=== PATIENT | female | born 1985 | race Caucasian/White ===

== ENCOUNTER 2020-09-27 16:36 | Outpatient (REF) | payer OTHER, SELFPAY | END 2020-09-27 16:37 | disposition home or self-care (01) | LOC: HO.LAB 16:36 | PROVIDERS: PCP Internal Medicine; Visit Provider Internal Medicine | DX: Z20.828 Contact with and (suspected) exposure to other viral communicable diseases (principal) | CPT/HCPCS: C9803; U0003 ==

== ENCOUNTER 2022-04-15 22:06 | Emergency (ER) | payer OTHER, SELFPAY ==
[2022-04-15 23:31] VITALS: BP 137/89; PULSE 73; RESP 16; TEMP 37.2; O2SAT 97; BMI 28.7
[2022-04-16 01:45] LABS: IDNOW Serial# 16C4AD1C
[2022-04-16 01:46] LABS: COVID-19 Test Negative (Negative); Influenza A Negative (Negative); Influenza B2 Negative (Negative)
[2022-04-16 02:00] VITALS: BP 112/63; PULSE 72; RESP 14; O2SAT 99
--- NOTE | 2022-04-16 02:51 | ED_ITS ---
HPI - Headache General Chief Complaint: Headache Stated Complaint: Head swollen, general fatigue Time Seen by Provider: 04/16/22 02:48 History of Present Illness HPI Narrative: Patient is a 36-year-old female presents today with having headaches. The headache is diffuse over the entire head. It is not associated with any focal weakness. Positive nausea. Positive generalized malaise positive earache patient from home. Positive congestion. Related Data Previous Rx's Medication Instructions Recorded ibuprofen 400 mg tablet 400 mg PO Q6H PRN #20 tab 04/16/22 Allergies Allergy/AdvReac Type Severity Reaction Status Date / Time No Known Allergies Allergy Verified 04/15/22 23:37 Review of Systems Review of Systems: Positive headache positive congestion Yes all other systems are reviewed and are negative FORMERLY [facility] Past Medical History Attestation statement: The following information was validated with the patient. Social History Social History Advance Directives: No Advance Directives Information Provided: No Physical Exam Vital Signs: Vital Signs: Last Vital Signs Temp 98.9 F 04/15/22 23:31 Pulse 73 04/15/22 23:31 Resp 16 04/15/22 23:31 BP 137/89 04/15/22 23:31 Pulse Ox 97 04/15/22 23:31 BMI result Body Mass Index 28.7 Appearance: Alert. Oriented X3. No acute distress. Eyes: Pupils equal, round and reactive to light. ENT: Pharynx normal. Neck: Normal inspection. Neck supple. No lymph nodes noted. No crepitus CVS: Normal heart rate and rhythm. Pulses normal. Normal S1 and S2 Respiratory: No respiratory distress. Breath sounds normal. No Wheezing. No rales Abdomen: Soft and nontender. No rigidity. No distention. good BS x4 Skin: Skin warm and dry. Normal skin color. Normal skin turgor. Extremities: No lower extremity edema. Neurovascular intact to all extremities. No Lacerations. No Rash Neuro: Oriented X 3. No motor deficit. No sensory deficit. Moving all extermities. No slurred speech MDM - Headache MDM Narrative Medical decision making narrative: Patient's COVID tests were negative. Given migraine treatment with good relief of symptoms. Per patient take Motrin for pain. In stable condition. Rapid strep was also negative. TMs were intact there is no erythema noted. No evidence for otitis. Patient is in stable condition.. No neck pain no fever not consistent with meningitis Medical Records Attestation: I reviewed the patient's medical records. Lab Data Attestation: I reviewed the patient's lab results. Result diagrams: 04/16/22 03:31 04/16/22 03:31 Labs: Lab Results 04/16/22 04/16/22 04/16/22 Range/Units 01:18 01:18 03:31 WBC 11.8 H (4.8-10.8) X10*3/uL RBC 3.69 L (4.20-5.50) X10*6/uL Hgb 11.5 L (12.0-16.0) g/dl Hct 34.4 L (37.0-47.0) % MCV 93.2 (80.0-98.0) fL MCH 31.2 (27.0-33.0) pg MCHC 33.4 (31.0-35.0) g/dl RDW 12.0 (11.0-16.0) % Plt Count 308 (160-400) X10*3/uL MPV 9.9 (9.4-12.3) fL Immature Gran % (Auto) 0.3 (0.0-0.4) % Neut % (Auto) 62.3 (45-73) % Lymph % (Auto) 25.9 (20-40) % [place] % (Auto) 7.2 (2-11) % Eos % (Auto) 4.0 (0-4) % Baso % (Auto) 0.3 (0-2) % Lymph # (Auto) 3.0 (1.2-4.9) X10*3/uL [place] # (Auto) 0.9 (0.1-1.2) X10*3/uL Eos # (Auto) 0.5 H (0.0-0.4) X10*3/uL Baso # (Auto) 0.0 (0.0-0.2) X10*3/uL Abs Immat Gran (auto) 0.03 (0.00-0.03) X10*3/uL Absolute Neuts (auto) 7.3 (2.0-8.3) x10*3/uL Absolute Nucleated RBC 0.000 (0.0-0.012) X10*3/uL Nucleated RBC % (auto) 0.0 (0.0-0.2) /100WBC Sodium (135-145) mmol/L Potassium (3.3-5.1) mmol/L Chloride (96-108) mmol/L Carbon Dioxide (22-29) mmol/L Anion Gap (12-20) BUN (9-16) mg/dL Creatinine (0.5-1.4) mg/dL Estim Creat Clear Calc Estimated GFR Random Glucose (60-115) mg/dL Calcium (8.4-10.2) mg/dL Beta HCG, Quant mIU/mL COVID-19 (ALYSSA) Negative (Negative) COVID-19 Clin Com See Note Influenza Type A (CINDY) Negative (Negative) Influenza Type B (CINDY) Negative (Negative) Influenza A & B Note See Note S. pyogenes GrpA CINDY (Negative) 04/16/22 04/16/22 04/16/22 Range/Units 03:31 03:31 03:31 WBC (4.8-10.8) X10*3/uL RBC (4.20-5.50) X10*6/uL Hgb (12.0-16.0) g/dl Hct (37.0-47.0) % MCV (80.0-98.0) fL MCH (27.0-33.0) pg MCHC (31.0-35.0) g/dl RDW (11.0-16.0) % Plt Count (160-400) X10*3/uL MPV (9.4-12.3) fL Immature Gran % (Auto) (0.0-0.4) % Neut % (Auto) (45-73) % Lymph % (Auto) (20-40) % [place] % (Auto) (2-11) % Eos % (Auto) (0-4) % Baso % (Auto) (0-2) % Lymph # (Auto) (1.2-4.9) X10*3/uL [place] # (Auto) (0.1-1.2) X10*3/uL Eos # (Auto) (0.0-0.4) X10*3/uL Baso # (Auto) (0.0-0.2) X10*3/uL Abs Immat Gran (auto) (0.00-0.03) X10*3/uL Absolute Neuts (auto) (2.0-8.3) x10*3/uL Absolute Nucleated RBC (0.0-0.012) X10*3/uL Nucleated RBC % (auto) (0.0-0.2) /100WBC Sodium 140 (135-145) mmol/L Potassium 3.5 (3.3-5.1) mmol/L Chloride 110 H (96-108) mmol/L Carbon Dioxide 23 (22-29) mmol/L Anion Gap 11 L (12-20) BUN 16 (9-16) mg/dL Creatinine 0.72 (0.5-1.4) mg/dL Estim Creat Clear Calc 69.9 Estimated GFR > 60 Random Glucose 78 (60-115) mg/dL Calcium 8.6 (8.4-10.2) mg/dL Beta HCG, Quant < 2 Cancelled mIU/mL COVID-19 (ALYSSA) (Negative) COVID-19 Clin Com Influenza Type A (CINDY) (Negative) Influenza Type B (CINDY) (Negative) Influenza A & B Note S. pyogenes GrpA CINDY Negative (Negative) Discharge Plan Discharge Clinical Impression: Headache Patient Disposition: Home, Self-Care Instructions: Acute Headache (DC) Prescriptions: New ibuprofen 400 mg tablet 400 mg PO Q6H PRN (Reason: pain) Qty: 20 0RF Referrals: Physician,Unknown J [Primary Care Provider] -
[2022-04-16] MEDS: Ketorolac Tromethamine 30 MG/ML VIAL IVPUSH (03:14)
[2022-04-16] MEDS: Metoclopramide HCl 10 MG/2 ML VIAL IVPUSH (03:14)
[2022-04-16] MEDS: diphenhydrAMINE HCL 50 MG/ML VIAL 25 MG IVPUSH (03:15)
[2022-04-16] MEDS: 0.9 % Sodium Chloride 500 ML 999 ML IV (03:16)
[2022-04-16 03:41] LABS: Basophils Percent Auto 0.3 % (0-2); Eosinophils Absolute Auto 0.5 X10*3/uL (0.0-0.4); Hematocrit 34.4 % (37.0-47.0); Hemoglobin 11.5 g/dl (12.0-16.0); Imm Gran Abs Auto 0.03 X10*3/uL (0.00-0.03); Imm Gran Pct Auto 0.3 % (0.0-0.4); Lymphocytes Percent Auto 25.9 % (20-40); MANUAL DIFF FLAG NO; Mean Corpuscular HGB Conc 33.4 g/dl (31.0-35.0); Mean Corpuscular Hemoglobin 31.2 pg (27.0-33.0); Mean Corpuscular Volume 93.2 fL (80.0-98.0); Mean Platelet Volume 9.9 fL (9.4-12.3); Monocytes Absolute Auto 0.9 X10*3/uL (0.1-1.2); Monocytes Percent Auto 7.2 % (2-11); Neutrophils Absolute Auto 7.3 x10*3/uL (2.0-8.3); Neutrophils Percent Auto 62.3 % (45-73); Platelet Count 308 X10*3/uL (160-400); Red Blood Count 3.69 X10*6/uL (4.20-5.50); White Blood Count 11.8 X10*3/uL (4.8-10.8)
[2022-04-16 03:49] LABS: Strep A Nucleic Acid Negative (Negative)
[2022-04-16 03:57] LABS: Anion Gap 11 (12-20); Blood Urea Nitrogen 16 mg/dL (9-16); Calcium 8.6 mg/dL (8.4-10.2); Carbon Dioxide 23 mmol/L (22-29); Chloride 110 mmol/L (96-108); Creatinine Clr Calc Pharmacy 69.9; Estimated Glomerular Filt Rate > 60; Glucose Random 78 mg/dL (60-115); Potassium 3.5 mmol/L (3.3-5.1); Sodium 140 mmol/L (135-145)
[2022-04-16 04:06] LABS: HCG Quantitative < 2 mIU/mL
[2022-04-16 05:36] VITALS: BP 122/67; PULSE 77; RESP 16; O2SAT 99
== END 2022-04-16 05:37 | disposition home or self-care (01) ==
PROVIDERS: Emergency Provider Emergency Medicine Emergency Medical Services
DX: R51.9 Headache, unspecified (principal); Z20.822 Contact with and (suspected) exposure to COVID-19; R11.0 Nausea; R53.81 Other malaise
CPT/HCPCS: 36415; 80048; 84702; 85025; 87502; 87635; 87651; 96361; 96374; 96375; 99283; 99284; J1200; J1885; J2765

== ENCOUNTER 2022-05-10 22:16 | Emergency (ER) | payer OTHER, SELFPAY ==
[2022-05-10 22:20] VITALS: BP 116/80; PULSE 88; RESP 20; TEMP 37.2; O2SAT 97; BMI 25.7
[2022-05-10 22:56] LABS: COVID-19 Test Negative (Negative); IDNOW Serial# 16C4AD1C; Influenza A Negative (Negative); Influenza B2 Negative (Negative)
--- NOTE | 2022-05-10 23:31 | ED_ITS ---
HPI - URI/Sore Throat General Chief Complaint: Upper Respiratory Symptoms Stated Complaint: headache ,sinus pressure Time Seen by Provider: 05/10/22 22:36 Source: patient and family Mode of arrival: ambulatory Limitations: language barrier (Danish-speaking) History of Present Illness HPI Narrative: 36-year-old female with a past medical history of migraine headaches and sinus infections presenting to the ED with complaints of chills, fatigue, malaise, migraine headaches with sinus pressure pain with associated nasal congestion/rhinorrhea since yesterday worse today. She also reports left ear pain with purulent drainage since yesterday after she placed the Q-tip into her ear due to she was already having pain. Denies recent travel or sick contacts. Denies any measured fevers, dizziness, neck pain/stiffness, trouble swallowing or breathing, sore throat, chest pain, shortness of breath, cough, dyspnea on exertion, orthopnea, palpitations, paresthesias, nausea/vomiting/diarrhea, constipation, abdominal pain, lower extremity edema or calf tenderness, recent travel or sick contacts, others with similar symptoms, recent CO2 exposure, recent tick bite, recent spinal procedure/epidural procedure, recent dental work, recent hospitalization or any other symptoms complaints or concerns at this time MD elicited complaint: rhinorrhea, nasal congestion and sinus pain Onset (ago): day(s) (2) Consistency: constant and progressively worsening Severity: moderate Description of mucous: clear, watery and yellow Able to tolerate fluids by mouth: Yes Exacerbating factors: changing head position and leaning forward Relieving factors: nothing Associated symptoms: chills, myalgias, headache, rhinorrhea, nasal congestion and ear pain (/drainage ) Treatments prior to arrival: none Related Data Previous Rx's Medication Instructions Recorded ibuprofen 400 mg tablet 400 mg PO Q6H PRN pain #20 tabs 04/16/22 amoxicillin 875 mg-potassium 1 tab PO BID 10 days #20 tabs 05/11/22 clavulanate 125 mg tablet diphenhydramine HCl 25 mg capsule 25 mg PO TID PRN sleep #14 caps 05/11/22 (Benadryl) ketorolac 10 mg tablet 10 mg PO Q8H PRN pain #10 tabs 05/11/22 Allergies Allergy/AdvReac Type Severity Reaction Status Date / Time No Known Allergies Allergy Verified 04/15/22 23:37 Review of Systems Review of Systems: Constitutional : + chills/fatigue/malaise, No Weight loss, No Fever, No Night Sweats ENT/Mouth : + left-sided ear pain with purulent drainage after placing a Q- tip/nasal congestion/rhinorrhea with sinus pressure pain, No Hearing loss, No Hoarseness, No sore throat, No Rhinorrhea, No Swallowing Difficulty Eyes: No Eye Pain, No Swelling, No Redness, No Foreign Body, No Discharge, No Vision Changes Cardiovascular : No Chest Pain, No SOB, No Dyspnea on Exertion, No Orthopnea, No Edema, No Palpitations Respiratory : No Cough, No Sputum, No Wheezing, No Smoke Exposure, No Dyspnea Gastrointestinal : No Nausea, No Vomiting, No Diarrhea, No Constipation, No abdominal Pain, No Hematochezia, No Melena Genitourinary : no irregular bleeding, No Dysuria, No Urinary Frequency, No Hematuria, No Urinary Incontinence, No Urgency, No Flank Pain, No Urinary Flow Changes, No Hesitancy Musculoskeletal : No joint pain, + Myalgias, No Joint Swelling Skin : No Skin Lesions, No rash Neuro : No Weakness, No Numbness, No Paresthesias, No Loss of Consciousness, No Dizziness, No Headache Psych : No Anxiety/Panic, No Depression, No SI/HI/AH/VH, No Social Issues, Heme/Lymph: No Bruising, No Bleeding,No Lymphadenopathy Endocrine : No Polyuria, No Polydipsia, No Temperature Intolerance Yes all other systems are reviewed and are negative [facility] Past Medical History Attestation statement: The following information was validated with the patient. Source: old records reviewed, obtained from family and nursing notes reviewed Social History Social History Advance Directives: No Advance Directives Information Provided: No Physical Exam Vital Signs: Vital Signs: Last Vital Signs Temp 99.0 F 05/10/22 22:20 Pulse 88 05/10/22 22:20 Resp 20 05/10/22 22:20 BP 116/80 05/10/22 22:20 Pulse Ox 97 05/10/22 22:20 O2 Del Method 05/10/22 22:20 BMI result Body Mass Index 25.7 vital signs have been reviewed as normal and appeared to be correct. Blood pressure normal. Heart rate normal. Respiration rate normal. Temperature normal. Oxygen saturation normal. Appearance: Alert. Oriented X3. No acute distress. Head: Normal external exam. Normocephalic. Atraumatic. Eyes: PERRLA. EOMI. Conjunctiva and sclera normal. Eyelids normal. ENT: Left tympanic membrane perforated with purulent yellow/green colored drainage. Right external ear canal within normal limits and right tympanic membrane within normal limits not perforated. TM's Normal. Patient with inflammation of the nares with nasal congestion noted and sinus pressure pain noted. Pharynx normal. Uvula midline. Moist mucous membranes. No lesions/ulcerations or masses noted on the tongue. Normal voice. No trismus noted. No drooling noted. No muffled voice noted. Neck: Normal inspection. Neck supple. FROM. No adenopathy. Thyroid Normal. No tracheal deviation noted. No crepitus is noted. No meningeal signs. No neck mass noted. No signs of trauma noted. CVS: Normal heart rate and rhythm. Heart sound normal. Pulses normal throughout. No murmurs/rales/gallops. Respiratory: No respiratory distress. Painless inspiration. Breath sounds normal. No wheezes/rales/rhonchi noted. No accessory muscle usage noted or decreased air movement noted. Back: Full range of motion noted. Nontender. Skin: Skin warm and dry. Normal skin color. Normal skin turgor. No rashes/lesions/lacerations noted. Extremities: No lower extremity edema. No calf tenderness is noted. Extremities exhibit normal range of motion and nontender. Neuro: Oriented X 3. No motor deficit. No sensory deficit. Reflexes normal. Normal steady gait. No focal neuro deficits noted. CN's II-XII intact bilate rally? Vascular: + radial pulses/+ 2 distal pedal pulses/+2 dorsalis pedis b/l. Normal cap refill. No cyanosis noted to upper extremity nails and lower extremity toes nails. Course Course Course Narrative: - Patient afebrile, resting comfortably in no distress. Non-toxic appearing. Patient denies any recent trauma/injury to head. Neurological exam shows no deficits. BP WNL. Denies any changes in vision. Patient ambulates without difficulty. Given the history, and physical - most likely diagnosis: Migraine PALOMO versus sinus pressure pain from a sinusitis. No imaging indicated. Will treat pain. Will d/c with migraine medicaiton and advised to follow - up with PCP. Patient demonstrated good understanding of signs and symptoms to return to ED for further testing should sx worsen. gradual onset PALOMO.. Pt states classic of previous migraine HAs. SAH: unlikely given gradual onset and similar to previous episodes Intracranial bleed: unlikely given neg trauma, neg anticoagulation Meningitis: unlikely given pt afebrile, neg stiff neck, no immune compromise. Exam without signs of meningismus Temporal arteritis: Unlikely given Neg jaw claudication, no temporal tenderness or nodularity on exam. Cerebral venous thrombosis: unlikely given no h/o hypercoaguable state, no chronic head/neck infection. MDM - URI/Sore Throat Medical Records Attestation: I reviewed the patient's medical records. Lab Data Attestation: I reviewed the patient's lab results. Labs: Lab Results 05/10/22 05/10/22 Range/Units 22:26 22:26 COVID-19 (ALYSSA) Negative (Negative) COVID-19 Clin Com See Note Influenza Type A (CINDY) Negative (Negative) Influenza Type B (CINDY) Negative (Negative) Influenza A & B Note See Note Discharge Plan Discharge Clinical Impression: Sinusitis, Sinus headache, Otitis externa, Central perforation of tympanic membrane, left ear Patient Disposition: Home, Self-Care Instructions: Sinusitis (ED), Otitis Externa (ED), Ruptured Eardrum (ED) Prescriptions: New amoxicillin-pot clavulanate 875-125 mg tablet 1 tab PO BID 10 Days Qty: 20 0RF ketorolac 10 mg tablet 10 mg PO Q8H PRN (Reason: pain) Qty: 10 0RF Rx Instructions: Given 1st dose in the ED diphenhydramine HCl [Benadryl] 25 mg capsule 25 mg PO TID PRN (Reason: sleep) Qty: 14 0RF No Action ibuprofen 400 mg tablet 400 mg PO Q6H PRN (Reason: pain) Qty: 20 0RF Referrals: Harjit Figueroa [Physician] - 1 week (Call to make a follow-up appointment within the next 1-2 weeks) Physician,Unknown J [Primary Care Provider] - 2 days (your pcp) Stand Alone Forms: Work/School Release Print Language: Danish
[2022-05-10] MEDS: 0.9 % Sodium Chloride 1,000 ML 999 ML IVCONT (23:50)
[2022-05-10] MEDS: Ketorolac Tromethamine 30 MG/ML VIAL IVPUSH (23:56)
[2022-05-10] MEDS: ondansetron HCL 4 MG/2 ML VIAL IVPUSH (23:56)
[2022-05-10] MEDS: diphenhydrAMINE HCL 50 MG/ML VIAL IVPUSH (23:57)
== END 2022-05-11 00:41 | disposition home or self-care (01) ==
PROVIDERS: Emergency Provider Internal Medicine
DX: J32.9 Chronic sinusitis, unspecified (principal); R51.9 Headache, unspecified; H60.92 Unspecified otitis externa, left ear; H72.02 Central perforation of tympanic membrane, left ear; Z20.822 Contact with and (suspected) exposure to COVID-19
CPT/HCPCS: 87502; 87635; 96361; 96374; 96375; 99283; 99284; J1200; J1885; J2405

== ENCOUNTER 2022-05-12 19:37 | Emergency (ER) | payer OTHER, SELFPAY ==
[2022-05-12 20:30] VITALS: BP 123/88; PULSE 90; RESP 20; TEMP 36.6; O2SAT 97; BMI 25.7
--- NOTE | 2022-05-12 21:54 | ED_ITS ---
HPI - Nausea/Vomiting/Diarrhea General Chief complaint: Headache Stated complaint: nauseous, vomiting Time Seen by Provider: 05/12/22 21:51 Source: patient and old records reviewed Mode of arrival: ambulatory Limitations: no limitations History of Present Illness HPI Narrative: 36 yo female seen here 05/10 for headaches negative serology for COVID/flu dx with migraine and L AOM with perforation after putting a Qtip into his ear. Put on Augmentin comes back today with c/o persistent L sided ear pain,sinus pressure, diarrhea from antibiotics MD elicited complaint: diarrhea and other (L ear pain, tension headache, sinus pressure) Pertinent past history: other (on augmentin) Onset (ago): day(s) (05/10) Description of diarrhea: watery Associated nausea: Yes Associated abdominal pain: No Severity: moderate Exacerbating factors: medication Relieving factors: none Context: recent antibiotic use Associated symptoms: other (ear pain, sinus pressure, headaches, diarrhea) Treatment prior to arrival: other (tried medications she was sent home with states they didn't help) Related Data Previous Rx's Medication Instructions Recorded ibuprofen 400 mg tablet 400 mg PO Q6H PRN pain #20 tabs 04/16/22 amoxicillin 875 mg-potassium 1 tab PO BID 10 days #20 tabs 05/11/22 clavulanate 125 mg tablet diphenhydramine HCl 25 mg capsule 25 mg PO TID PRN sleep #14 caps 05/11/22 (Benadryl) ketorolac 10 mg tablet 10 mg PO Q8H PRN pain #10 tabs 05/11/22 amoxicillin 500 mg capsule 500 mg PO BID 7 days #14 caps 05/12/22 [id number] 1 tab PO Q6H PRN pain #20 tabs 05/12/22 50 mg-325 mg-40 mg tablet cyclobenzaprine 10 mg tablet 10 mg PO TID PRN muscle spasm #14 05/12/22 tabs lactobacillus combination no.4 3 3,000 mmu cells PO DAILY #14 caps 05/12/22 billion cell capsule (Probiotic) ofloxacin 0.3 % ear drops 10 drp otic (ears) DAILY 7 days #5 05/12/22 mL ondansetron 4 mg disintegrating 4 mg PO Q8H PRN nausea and 05/12/22 tablet vomiting #20 tabs Allergies Allergy/AdvReac Type Severity Reaction Status Date / Time No Known Allergies Allergy Verified 05/12/22 20:36 Review of Systems Review of Systems: Constitutional : No Fever, No Chills, No Fatigue ENT/Mouth : No sore throat, No Rhinorrhea, pos ear pain, pos sinus pressure, pos nasal congestion Eyes: No Eye Pain, No Swelling, No Redness Cardiovascular : No Chest Pain, No SOB, No Dyspnea on Exertion Respiratory : No Cough, No Sputum Gastrointestinal : pos Nausea, No Vomiting, pos Diarrhea, No abdominal Pain Genitourinary : No Dysuria, No Urinary Frequency, No Hematuria, Musculoskeletal : No joint pain, No Myalgias, No Joint Swelling Skin : No Skin Lesions, No rash Neuro : No Weakness, No Numbness, No Dizziness, positive Headache Psych : No Anxiety/Panic, No Depression Heme/Lymph: No Bruising, No Bleeding,No Lymphadenopathy Endocrine : No Polyuria, No Polydipsia All other systems reviewed and are negative Gastrointestinal: Gastrointestinal: Reports nausea PMFSH Past Medical History Attestation statement: The following information was validated with the patient. Medical History Migraine Otitis media Sinusitis Social History Social History (Updated 05/12/22 @ 22:18 by Wanda Treviño DO) Patient Tobacco Use Status: Current someday Tobacco user Physical Exam Vital Signs: Vital Signs: Last Vital Signs Temp 98 F 05/12/22 20:30 Pulse 90 05/12/22 20:30 Resp 20 05/12/22 20:30 BP 123/88 05/12/22 20:30 Pulse Ox 97 05/12/22 20:30 O2 Del Method 05/12/22 20:30 BMI result Body Mass Index 25.7 Appearance: Alert. Oriented X3. No acute distress. Not toxic appearing Eyes: Pupils equal, round and reactive to light. ENT: Pharynx normal. L TM small perforation noted, swollen mild canal yellow material in canal along with dull membrane and fluid behind drum Neck: Normal inspection. Neck supple. full ROM no meningeal signs CVS: Normal heart rate and rhythm. Pulses normal. Respiratory: No respiratory distress. Breath sounds normal. Abdomen: Soft and nontender. Skin: Skin warm and dry. Normal skin color. Normal skin turgor. Extremities: No lower extremity edema. No calf ttp Neuro: Oriented X 3. No motor deficit. No sensory deficit. MDM - Nausea/Vomiting/Diarrhea MDM Narrative Medical decision making narrative: 36 yo female with hx of migraines has not seen Neurologist yet just treated for sinusitis and L AOM reports diarrhea, persistent headache - not on probitiocs, not on ear drops. At this time will start on amoxicillin (switch from augmentin) add ear drops, more supportive medications. Discussed probiotics and yogurt, patient is not toxic and appears well. VS stable. Discussed PCP follow up and no water in the ear. I do not suspect SAH hemorrhage or [employer] infection. Discharge Plan Discharge Clinical Impression: Sinusitis, Tension headache, Otitis media Patient Disposition: Home, Self-Care Instructions: Sinusitis (ED), Ruptured Eardrum (ED), Tension Headache (ED), Ear Infection (ED) Additional Instructions: sin agua en el oido seth 5 weinstein lita un seguimiento con olivera m?dico y vuelva a revisar olivera t?mpano en los pr?ximos 5 d?as Deje de mickie Augmentin (amoxicilina/?cido clavul?tiffany) en janie momento come yogur mientras aaron antibi?ticos Prescriptions: New cyclobenzaprine 10 mg tablet 10 mg PO TID PRN (Reason: muscle spasm) Qty: 14 0RF amoxicillin 500 mg capsule 500 mg PO BID 7 Days Qty: 14 0RF [id number]-kryipyhowlfyi-[id number] 50-325-40 mg tablet 1 tab PO Q6H PRN (Reason: pain) Qty: 20 0RF ofloxacin 0.3 % drops 10 drp otic (ears) DAILY 7 Days Qty: 5 0RF ondansetron 4 mg tablet,disintegrating 4 mg PO Q8H PRN (Reason: nausea and vomiting) Qty: 20 0RF Probiotic 3 billion cell capsule 3,000 mmu cells PO DAILY Qty: 14 0RF Rx Instructions: administer with a meal No Action ibuprofen 400 mg tablet 400 mg PO Q6H PRN (Reason: pain) Qty: 20 0RF amoxicillin-pot clavulanate 875-125 mg tablet 1 tab PO BID 10 Days Qty: 20 0RF ketorolac 10 mg tablet 10 mg PO Q8H PRN (Reason: pain) Qty: 10 0RF Rx Instructions: Given 1st dose in the ED diphenhydramine HCl [Benadryl] 25 mg capsule 25 mg PO TID PRN (Reason: sleep) Qty: 14 0RF Print Language: Romansh
[2022-05-12] MEDS: Butalb/Acetamin/Caff 50/325/40 TABLET 1 TAB PO (22:54)
[2022-05-12] MEDS: Ondansetron ODT 4 MG TAB.RAPDIS TRANSLINGU (22:54)
[2022-05-12] MEDS: Cyclobenzaprine HCl 10 MG TABLET PO (22:54)
== END 2022-05-12 23:08 | disposition home or self-care (01) ==
PROVIDERS: Emergency Provider Emergency Medicine
DX: G44.209 Tension-type headache, unspecified, not intractable (principal); H66.93 Otitis media, unspecified, bilateral; R11.2 Nausea with vomiting, unspecified; J32.9 Chronic sinusitis, unspecified; Z79.899 Other long term (current) drug therapy
CPT/HCPCS: 99283

== ENCOUNTER 2023-04-05 20:35 | Emergency (ER) | payer OTHER, SELFPAY ==
--- NOTE | 2023-04-05 20:42 | ED.GENADULT ---
HPI - General Adult General Chief complaint: Weakness Stated complaint: weakness,loss of appetite Time Seen by Provider: 04/05/23 23:29 Related Data Previous Rx's Medication Instructions Recorded ibuprofen 400 mg tablet 400 mg PO Q6H PRN pain #20 tabs 04/16/22 amoxicillin 875 mg-potassium 1 tab PO BID 10 days #20 tabs 05/11/22 clavulanate 125 mg tablet diphenhydramine HCl 25 mg capsule 25 mg PO TID PRN sleep #14 caps 05/11/22 (Benadryl) ketorolac 10 mg tablet 10 mg PO Q8H PRN pain #10 tabs 05/11/22 amoxicillin 500 mg capsule 500 mg PO BID 7 days #14 caps 05/12/22 ysscrcvjuf-yrzjauehocotx-cfwkmmpq 1 tab PO Q6H PRN pain #20 tabs 05/12/22 50 mg-325 mg-40 mg tablet cyclobenzaprine 10 mg tablet 10 mg PO TID PRN muscle spasm #14 05/12/22 tabs lactobacillus combination no.4 3 3,000 mmu cells PO DAILY #14 caps 05/12/22 billion cell capsule (Probiotic) ofloxacin 0.3 % ear drops 10 drp otic (ears) DAILY 7 days #5 05/12/22 mL ondansetron 4 mg disintegrating 4 mg PO Q8H PRN nausea and 05/12/22 tablet vomiting #20 tabs ondansetron 4 mg disintegrating 4 mg PO Q6H PRN nausea and 04/06/23 tablet vomiting #10 tabs Allergies Allergy/AdvReac Type Severity Reaction Status Date / Time No Known Allergies Allergy Verified 05/12/22 20:36 [facility] Past Medical History Medical History Migraine Otitis media Sinusitis Social History Social History (Updated 05/12/22 @ 22:18 by Terrie Treviño DO) Patient Tobacco Use Status: Current someday Tobacco user Advance Directives: No Advance Directives Information Provided: Yes Physical Exam ED Vital Signs: Vital Signs - 24 hr 04/05/23 20:43 Temperature 98.9 F Pulse Rate 77 Respiratory Rate 18 Blood Pressure 99/61 Pulse Oximetry 99 Oxygen Delivery Method Room Air BMI result Body Mass Index 28.2 Course Course Course Narrative: This is a rapid medical exam. Deferred additional HPI, ROS, PE to primary provider. 37 yo female with history of anxiety, depression, here with weakness, nausea, headache x 1 week. Also menses is one week late-tells me she cannot have children ?tubal There was a gas leak at her apartment that she found out today. Will check labs, UA, ur preg, viral testing. VSS Medications Administered Discontinued Medications Generic Name Dose Route Start Last Admin Trade Name Freq PRN Reason Stop Dose Admin Ondansetron HCl 4 mg 04/05/23 23:48 04/06/23 00:06 Ondansetron Odt 4 Mg Tab.Rapdis TRANSLINGU 04/05/23 23:49 4 mg ONCE ONE Administration Medical Decision Making Lab Data 04/05/23 21:35 04/05/23 21:35 Labs: Lab Results 04/05/23 04/05/23 04/05/23 Range/Units 21:34 21:35 21:35 WBC 12.4 H (4.8-10.8) X10*3/uL RBC 4.10 L (4.20-5.50) X10*6/uL Hgb 12.8 (12.0-16.0) g/dl Hct 38.1 (37.0-47.0) % MCV 92.9 (80.0-98.0) fL MCH 31.2 (27.0-33.0) pg MCHC 33.6 (31.0-35.0) g/dl RDW 12.5 (11.0-16.0) % Plt Count 297 (160-400) X10*3/uL MPV 10.2 (9.4-12.3) fL Immature Gran % (Auto) 0.2 (0.0-0.4) % Neut % (Auto) 71.9 (45-73) % Lymph % (Auto) 18.0 L (20-40) % [place] % (Auto) 9.3 (2-11) % Eos % (Auto) 0.3 (0-4) % Baso % (Auto) 0.3 (0-2) % Lymph # (Auto) 2.2 (1.2-4.9) X10*3/uL [place] # (Auto) 1.2 (0.1-1.2) X10*3/uL Eos # (Auto) 0.0 (0.0-0.4) X10*3/uL Baso # (Auto) 0.0 (0.0-0.2) X10*3/uL Abs Immat Gran (auto) 0.03 (0.00-0.03) X10*3/uL Absolute Neuts (auto) 8.9 H (2.0-8.3) x10*3/uL Absolute Nucleated RBC 0.000 (0.0-0.012) X10*3/uL Nucleated RBC % (auto) 0.0 (0.0-0.2) /100WBC Carboxyhemoglobin % % Sodium 141 (135-145) mmol/L Potassium 3.7 (3.3-5.1) mmol/L Chloride 105 (96-108) mmol/L Carbon Dioxide 28 (22-29) mmol/L Anion Gap 12 (12-20) BUN 9 (9-16) mg/dL Creatinine 0.72 (0.5-1.4) mg/dL Estim Creat Clear Calc 68.6 Estimated GFR > 60 Random Glucose 86 (60-115) mg/dL Calcium 10.0 D (8.4-10.2) mg/dL Urine Color Urine Appearance Urine pH (5.0-9.0) Ur Specific [place] (1.005-1.025) Urine Protein (Neg-Trace) mg/dL Urine Glucose (UA) (Negative) mg/dL Urine Ketones (Negative) mg/dL Urine Blood (Negative) Urine Nitrite (Negative) Ur Leukocyte Esterase (Negative) Urine RBC (0-2) /HPF Urine WBC (0-5) /HPF Ur Squamous Epith Cells (0-2) /HPF Urine Bacteria (None Seen) Hyaline Casts (0-2) /LPF Urine Test NEGATIVE (NEGATIVE) Influenza Type A (PCR) (Negative) Influenza Type B (PCR) (Negative) RSV RNA Qual (PCR) (Negative) SARS-CoV-2 RNA (RT-PCR) (Negative) 04/05/23 04/05/23 04/05/23 Range/Units 21:35 21:35 21:38 WBC (4.8-10.8) X10*3/uL RBC (4.20-5.50) X10*6/uL Hgb (12.0-16.0) g/dl Hct (37.0-47.0) % MCV (80.0-98.0) fL MCH (27.0-33.0) pg MCHC (31.0-35.0) g/dl RDW (11.0-16.0) % Plt Count (160-400) X10*3/uL MPV (9.4-12.3) fL Immature Gran % (Auto) (0.0-0.4) % Neut % (Auto) (45-73) % Lymph % (Auto) (20-40) % [place] % (Auto) (2-11) % Eos % (Auto) (0-4) % Baso % (Auto) (0-2) % Lymph # (Auto) (1.2-4.9) X10*3/uL [place] # (Auto) (0.1-1.2) X10*3/uL Eos # (Auto) (0.0-0.4) X10*3/uL Baso # (Auto) (0.0-0.2) X10*3/uL Abs Immat Gran (auto) (0.00-0.03) X10*3/uL Absolute Neuts (auto) (2.0-8.3) x10*3/uL Absolute Nucleated RBC (0.0-0.012) X10*3/uL Nucleated RBC % (auto) (0.0-0.2) /100WBC Carboxyhemoglobin % 3.9 % Sodium (135-145) mmol/L Potassium (3.3-5.1) mmol/L Chloride (96-108) mmol/L Carbon Dioxide (22-29) mmol/L Anion Gap (12-20) BUN (9-16) mg/dL Creatinine (0.5-1.4) mg/dL Estim Creat Clear Calc Estimated GFR Random Glucose (60-115) mg/dL Calcium (8.4-10.2) mg/dL Urine Color Yellow Urine Appearance Cloudy Urine pH 6.0 (5.0-9.0) Ur Specific [place] 1.020 (1.005-1.025) Urine Protein Negative (Neg-Trace) mg/dL Urine Glucose (UA) Negative (Negative) mg/dL Urine Ketones Negative (Negative) mg/dL Urine Blood Small (1+) H (Negative) Urine Nitrite Negative (Negative) Ur Leukocyte Esterase Negative (Negative) Urine RBC 3-5 H (0-2) /HPF Urine WBC 0-5 (0-5) /HPF Ur Squamous Epith Cells 11-20 (0-2) /HPF Urine Bacteria 4+ (None Seen) Hyaline Casts 0-2 (0-2) /LPF Urine Test (NEGATIVE) Influenza Type A (PCR) NEGATIVE (Negative) Influenza Type B (PCR) NEGATIVE (Negative) RSV RNA Qual (PCR) NEGATIVE (Negative) SARS-CoV-2 RNA (RT-PCR) NEGATIVE (Negative) Discharge Plan Discharge Clinical Impression: Generalized weakness, Nausea vomiting and diarrhea Patient Disposition: Home, Self-Care Instructions: Acute Nausea and Vomiting (ED), Weakness (ED) Additional Instructions: Please follow-up with your primary care physician tomorrow. If you have any worsening or new symptoms, please return to the emergency room or call 911 Prescriptions: New ondansetron 4 mg tablet,disintegrating 4 mg PO Q6H PRN (Reason: nausea and vomiting) Qty: 10 0RF No Action ibuprofen 400 mg tablet 400 mg PO Q6H PRN (Reason: pain) Qty: 20 0RF amoxicillin-pot clavulanate 875-125 mg tablet 1 tab PO BID 10 Days Qty: 20 0RF ketorolac 10 mg tablet 10 mg PO Q8H PRN (Reason: pain) Qty: 10 0RF Rx Instructions: Given 1st dose in the ED diphenhydramine HCl [Benadryl] 25 mg capsule 25 mg PO TID PRN (Reason: sleep) Qty: 14 0RF cyclobenzaprine 10 mg tablet 10 mg PO TID PRN (Reason: muscle spasm) Qty: 14 0RF amoxicillin 500 mg capsule 500 mg PO BID 7 Days Qty: 14 0RF zskkcfjhmc-paakzvubxiock-mfyc 50-325-40 mg tablet 1 tab PO Q6H PRN (Reason: pain) Qty: 20 0RF ofloxacin 0.3 % drops 10 drp otic (ears) DAILY 7 Days Qty: 5 0RF ondansetron 4 mg tablet,disintegrating 4 mg PO Q8H PRN (Reason: nausea and vomiting) Qty: 20 0RF Probiotic 3 billion cell capsule 3,000 mmu cells PO DAILY Qty: 14 0RF Rx Instructions: administer with a meal
[2023-04-05 20:43] VITALS: BP 99/61; PULSE 77; RESP 18; TEMP 37.2; O2SAT 99; BMI 28.2
[2023-04-05 21:41] LABS: MANUAL DIFF FLAG NO
[2023-04-05 21:43] LABS: Basophils Percent Auto 0.3 % (0-2); Eosinophils Percent Auto 0.3 % (0-4); Hematocrit 38.1 % (37.0-47.0); Hemoglobin 12.8 g/dl (12.0-16.0); Imm Gran Abs Auto 0.03 X10*3/uL (0.00-0.03); Imm Gran Pct Auto 0.2 % (0.0-0.4); Lymphocytes Absolute Auto 2.2 X10*3/uL (1.2-4.9); Mean Corpuscular HGB Conc 33.6 g/dl (31.0-35.0); Mean Corpuscular Hemoglobin 31.2 pg (27.0-33.0); Mean Corpuscular Volume 92.9 fL (80.0-98.0); Mean Platelet Volume 10.2 fL (9.4-12.3); Monocytes Absolute Auto 1.2 X10*3/uL (0.1-1.2); Monocytes Percent Auto 9.3 % (2-11); Neutrophils Absolute Auto 8.9 x10*3/uL (2.0-8.3); Neutrophils Percent Auto 71.9 % (45-73); Platelet Count 297 X10*3/uL (160-400); Red Cell Distribution Width 12.5 % (11.0-16.0); White Blood Count 12.4 X10*3/uL (4.8-10.8)
[2023-04-05 21:44] LABS: Appearance Urine Cloudy; Color Urine Yellow; Glucose Urine UA Negative (Negative); Leukocyte Esterase Urine Negative (Negative); Nitrite Urine Negative (Negative); UMIC TRIGGER UACC YES; Urine Blood Small (1+) (Negative); Urine Ketones Negative (Negative); Urine Protein Negative (Neg-Trace)
[2023-04-05 21:44] LABS: Carbon Monoxide Refer to POC result
[2023-04-05 21:45] LABS: UPreg QC Valid YES; Urine Pregnancy NEGATIVE (NEGATIVE)
[2023-04-05 21:45] LABS: Carbon Monoxide POC 3.9 %
[2023-04-05 21:54] LABS: Anion Gap 12 (12-20); Blood Urea Nitrogen 9 mg/dL (9-16); Carbon Dioxide 28 mmol/L (22-29); Chloride 105 mmol/L (96-108); Creatinine Clr Calc Pharmacy 68.6; Estimated Glomerular Filt Rate > 60; Glucose Random 86 mg/dL (60-115); Potassium 3.7 mmol/L (3.3-5.1); Sodium 141 mmol/L (135-145)
[2023-04-05 22:08] LABS: Bacteria Urine 4+ (None Seen); Hyaline Casts Urine 0-2 /LPF (0-2); WBC Urine 0-5 /HPF (0-5)
[2023-04-05 22:20] LABS: Influenza A PCR NEGATIVE (Negative); Influenza B PCR NEGATIVE (Negative); Resp Syncy Virus RNA Qual PCR NEGATIVE (Negative); SARS COV2 PCR INHOUSE NEGATIVE (Negative)
--- NOTE | 2023-04-05 23:12 | ECG_ITS ---
Test Reason : WEACKNESS Blood Pressure : / mmHG Vent. Rate : 067 BPM Atrial Rate : 067 BPM P-R Int : 158 ms QRS Dur : 086 ms QT Int : 364 ms P-R-T Axes : 059 065 025 degrees QTc Int : 384 ms Normal sinus rhythm with sinus arrhythmia Nonspecific T wave abnormality Abnormal ECG No previous ECGs available Referred By: Generic ED Physician Electronically Signed By:SOHAN DAILY
--- NOTE | 2023-04-05 23:47 | ED.GENADULT ---
HPI - General Adult General Chief complaint: Weakness Stated complaint: weakness,loss of appetite Time Seen by Provider: 04/05/23 23:29 Source: patient Mode of arrival: ambulatory Limitations: no limitations History of Present Illness HPI narrative: Patient comes to the emergency room complaining of weakness, nausea, headache, diarrhea for about a week. Patient states that for several weeks now, she has noticed that her apartment smells like gas. Patient informed the landlord, they sent a network internship to check, and it was confirmed that there is a gas leak. The gas was shut off at the patient's residence. Related Data Previous Rx's Medication Instructions Recorded ibuprofen 400 mg tablet 400 mg PO Q6H PRN pain #20 tabs 04/16/22 amoxicillin 875 mg-potassium 1 tab PO BID 10 days #20 tabs 05/11/22 clavulanate 125 mg tablet diphenhydramine HCl 25 mg capsule 25 mg PO TID PRN sleep #14 caps 05/11/22 (Benadryl) ketorolac 10 mg tablet 10 mg PO Q8H PRN pain #10 tabs 05/11/22 amoxicillin 500 mg capsule 500 mg PO BID 7 days #14 caps 05/12/22 dlqorbsmzb-emzvtofccbruf-kijlwjvv 1 tab PO Q6H PRN pain #20 tabs 05/12/22 50 mg-325 mg-40 mg tablet cyclobenzaprine 10 mg tablet 10 mg PO TID PRN muscle spasm #14 05/12/22 tabs lactobacillus combination no.4 3 3,000 mmu cells PO DAILY #14 caps 05/12/22 billion cell capsule (Probiotic) ofloxacin 0.3 % ear drops 10 drp otic (ears) DAILY 7 days #5 05/12/22 mL ondansetron 4 mg disintegrating 4 mg PO Q8H PRN nausea and 05/12/22 tablet vomiting #20 tabs Allergies Allergy/AdvReac Type Severity Reaction Status Date / Time No Known Allergies Allergy Verified 05/12/22 20:36 Review of Systems Review of Systems: Constitutional : No Weight loss, No Fever, No Chills, No Night Sweats, fatigue and generalized malaise ENT/Mouth : No Hearing loss, No Ear Pain, No Nasal Congestion, No Sinus Pain, No Hoarseness, No sore throat, No Rhinorrhea, No Swallowing Difficulty Eyes: No Eye Pain, No Swelling, No Redness, No Foreign Body, No Discharge, No Vision Changes Cardiovascular : No Chest Pain, No SOB, No Dyspnea on Exertion, No Orthopnea, No Edema, No Palpitations Respiratory : No Cough, No Sputum, No Wheezing, No Smoke Exposure, No Dyspnea Gastrointestinal : No Nausea, complaining of nausea and vomiting Vomiting, No Diarrhea, No Constipation, No abdominal Pain, No Hematochezia, No Melena Genitourinary : no irregular bleeding, No Dysuria, No Urinary Frequency, No Hematuria, No Urinary Incontinence, No Urgency, No Flank Pain, No Urinary Flow Changes, No Hesitancy Musculoskeletal : No joint pain, No Myalgias, No Joint Swelling Skin : No Skin Lesions, No rash Neuro : No Weakness, No Numbness, No Paresthesias, No Loss of Consciousness, No Dizziness, No Headache Psych : No Anxiety/Panic, No Depression, No SI/HI/AH/VH, No Social Issues, Heme/Lymph: No Bruising, No Bleeding,No Lymphadenopathy Endocrine : No Polyuria, No Polydipsia, No Temperature Intolerance [facility] Past Medical History Medical History Migraine Otitis media Sinusitis Social History Social History (Updated 05/12/22 @ 22:18 by Terrie Treviño DO) Patient Tobacco Use Status: Current someday Tobacco user Physical Exam ED Vital Signs: Vital Signs - 24 hr 04/05/23 20:43 Temperature 98.9 F Pulse Rate 77 Respiratory Rate 18 Blood Pressure 99/61 Pulse Oximetry 99 Oxygen Delivery Method Room Air BMI result Body Mass Index 28.2 Const Other: Appearance: Alert. Oriented X3. No acute distress. Eyes: Pupils equal, round and reactive to light. ENT: Pharynx normal. Neck: Normal inspection. Neck supple. No lymph nodes noted. No crepitus CVS: Normal heart rate and rhythm. Pulses normal. Normal S1 and S2 Respiratory: No respiratory distress. Breath sounds normal. No Wheezing. No rales Abdomen: Soft and nontender. No rigidity. No distention. Skin: Skin warm and dry. Normal skin color. Normal skin turgor. Extremities: No lower extremity edema. No Lacerations. No Rash Neuro: Oriented X 3. No motor deficit. No sensory deficit. Moving all extremities. No slurred speech. CN 2 through 12 grossly intact Psych: calm, cooperative, normal affect Medical Decision Making Medical Decision Making MDM Narrative: Patient's white blood cell count 12.4, likely reactive leukocytosis, chemistry unremarkable, carboxyhemoglobin level 3.9, patient is a smoker, (normal levels for smoker). -patient was given Zofran in the emergency room and a prescription. -discussed with the patient that she needs to have good follow-up with her [employer] to ensure there was no further leaks Differential diagnosis, viral syndrome Lab Data 04/05/23 21:35 04/05/23 21:35 Labs: Lab Results 04/05/23 04/05/23 04/05/23 Range/Units 21:34 21:35 21:35 WBC 12.4 H (4.8-10.8) X10*3/uL RBC 4.10 L (4.20-5.50) X10*6/uL Hgb 12.8 (12.0-16.0) g/dl Hct 38.1 (37.0-47.0) % MCV 92.9 (80.0-98.0) fL MCH 31.2 (27.0-33.0) pg MCHC 33.6 (31.0-35.0) g/dl RDW 12.5 (11.0-16.0) % Plt Count 297 (160-400) X10*3/uL MPV 10.2 (9.4-12.3) fL Immature Gran % (Auto) 0.2 (0.0-0.4) % Neut % (Auto) 71.9 (45-73) % Lymph % (Auto) 18.0 L (20-40) % [place] % (Auto) 9.3 (2-11) % Eos % (Auto) 0.3 (0-4) % Baso % (Auto) 0.3 (0-2) % Lymph # (Auto) 2.2 (1.2-4.9) X10*3/uL [place] # (Auto) 1.2 (0.1-1.2) X10*3/uL Eos # (Auto) 0.0 (0.0-0.4) X10*3/uL Baso # (Auto) 0.0 (0.0-0.2) X10*3/uL Abs Immat Gran (auto) 0.03 (0.00-0.03) X10*3/uL Absolute Neuts (auto) 8.9 H (2.0-8.3) x10*3/uL Absolute Nucleated RBC 0.000 (0.0-0.012) X10*3/uL Nucleated RBC % (auto) 0.0 (0.0-0.2) /100WBC Carboxyhemoglobin % % Sodium 141 (135-145) mmol/L Potassium 3.7 (3.3-5.1) mmol/L Chloride 105 (96-108) mmol/L Carbon Dioxide 28 (22-29) mmol/L Anion Gap 12 (12-20) BUN 9 (9-16) mg/dL Creatinine 0.72 (0.5-1.4) mg/dL Estim Creat Clear Calc 68.6 Estimated GFR > 60 Random Glucose 86 (60-115) mg/dL Calcium 10.0 D (8.4-10.2) mg/dL Urine Color Urine Appearance Urine pH (5.0-9.0) Ur Specific [place] (1.005-1.025) Urine Protein (Neg-Trace) mg/dL Urine Glucose (UA) (Negative) mg/dL Urine Ketones (Negative) mg/dL Urine Blood (Negative) Urine Nitrite (Negative) Ur Leukocyte Esterase (Negative) Urine RBC (0-2) /HPF Urine WBC (0-5) /HPF Ur Squamous Epith Cells (0-2) /HPF Urine Bacteria (None Seen) Hyaline Casts (0-2) /LPF Urine Test NEGATIVE (NEGATIVE) Influenza Type A (PCR) (Negative) Influenza Type B (PCR) (Negative) RSV RNA Qual (PCR) (Negative) SARS-CoV-2 RNA (RT-PCR) (Negative) 04/05/23 04/05/23 04/05/23 Range/Units 21:35 21:35 21:38 WBC (4.8-10.8) X10*3/uL RBC (4.20-5.50) X10*6/uL Hgb (12.0-16.0) g/dl Hct (37.0-47.0) % MCV (80.0-98.0) fL MCH (27.0-33.0) pg MCHC (31.0-35.0) g/dl RDW (11.0-16.0) % Plt Count (160-400) X10*3/uL MPV (9.4-12.3) fL Immature Gran % (Auto) (0.0-0.4) % Neut % (Auto) (45-73) % Lymph % (Auto) (20-40) % [place] % (Auto) (2-11) % Eos % (Auto) (0-4) % Baso % (Auto) (0-2) % Lymph # (Auto) (1.2-4.9) X10*3/uL [place] # (Auto) (0.1-1.2) X10*3/uL Eos # (Auto) (0.0-0.4) X10*3/uL Baso # (Auto) (0.0-0.2) X10*3/uL Abs Immat Gran (auto) (0.00-0.03) X10*3/uL Absolute Neuts (auto) (2.0-8.3) x10*3/uL Absolute Nucleated RBC (0.0-0.012) X10*3/uL Nucleated RBC % (auto) (0.0-0.2) /100WBC Carboxyhemoglobin % 3.9 % Sodium (135-145) mmol/L Potassium (3.3-5.1) mmol/L Chloride (96-108) mmol/L Carbon Dioxide (22-29) mmol/L Anion Gap (12-20) BUN (9-16) mg/dL Creatinine (0.5-1.4) mg/dL Estim Creat Clear Calc Estimated GFR Random Glucose (60-115) mg/dL Calcium (8.4-10.2) mg/dL Urine Color Yellow Urine Appearance Cloudy Urine pH 6.0 (5.0-9.0) Ur Specific [place] 1.020 (1.005-1.025) Urine Protein Negative (Neg-Trace) mg/dL Urine Glucose (UA) Negative (Negative) mg/dL Urine Ketones Negative (Negative) mg/dL Urine Blood Small (1+) H (Negative) Urine Nitrite Negative (Negative) Ur Leukocyte Esterase Negative (Negative) Urine RBC 3-5 H (0-2) /HPF Urine WBC 0-5 (0-5) /HPF Ur Squamous Epith Cells 11-20 (0-2) /HPF Urine Bacteria 4+ (None Seen) Hyaline Casts 0-2 (0-2) /LPF Urine Test (NEGATIVE) Influenza Type A (PCR) NEGATIVE (Negative) Influenza Type B (PCR) NEGATIVE (Negative) RSV RNA Qual (PCR) NEGATIVE (Negative) SARS-CoV-2 RNA (RT-PCR) NEGATIVE (Negative) Discharge Plan Discharge Clinical Impression: Generalized weakness, Nausea vomiting and diarrhea Prescriptions: No Action ibuprofen 400 mg tablet 400 mg PO Q6H PRN (Reason: pain) Qty: 20 0RF amoxicillin-pot clavulanate 875-125 mg tablet 1 tab PO BID 10 Days Qty: 20 0RF ketorolac 10 mg tablet 10 mg PO Q8H PRN (Reason: pain) Qty: 10 0RF Rx Instructions: Given 1st dose in the ED diphenhydramine HCl [Benadryl] 25 mg capsule 25 mg PO TID PRN (Reason: sleep) Qty: 14 0RF cyclobenzaprine 10 mg tablet 10 mg PO TID PRN (Reason: muscle spasm) Qty: 14 0RF amoxicillin 500 mg capsule 500 mg PO BID 7 Days Qty: 14 0RF lziszyfhfj-prlbklkeheprl-ldne 50-325-40 mg tablet 1 tab PO Q6H PRN (Reason: pain) Qty: 20 0RF ofloxacin 0.3 % drops 10 drp otic (ears) DAILY 7 Days Qty: 5 0RF ondansetron 4 mg tablet,disintegrating 4 mg PO Q8H PRN (Reason: nausea and vomiting) Qty: 20 0RF Probiotic 3 billion cell capsule 3,000 mmu cells PO DAILY Qty: 14 0RF Rx Instructions: administer with a meal
[2023-04-06] MEDS: Ondansetron ODT 4 MG TAB.RAPDIS TRANSLINGU (00:06)
[2023-04-06 00:53] VITALS: BP 117/77; PULSE 80; RESP 16; TEMP 36.8; O2SAT 99
== END 2023-04-06 01:13 | disposition home or self-care (01) ==
PROVIDERS: Nurse Practitioner Family; Emergency Provider Emergency Medicine
DX: R53.1 Weakness (principal); R11.2 Nausea with vomiting, unspecified; R19.7 Diarrhea, unspecified; I49.8 Other specified cardiac arrhythmias; R94.31 Abnormal electrocardiogram [ECG] [EKG]; Z20.822 Contact with and (suspected) exposure to COVID-19; Z20.828 Contact with and (suspected) exposure to other viral communicable diseases; Z79.899 Other long term (current) drug therapy
CPT/HCPCS: 0241U; 36415; 80048; 81001; 81025; 82375; 85025; 93005; 99284; 99285

== ENCOUNTER 2023-04-08 11:08 | Emergency (ER) | payer OTHER, SELFPAY ==
--- NOTE | ~2023-04-08 | US_ITS ---
EXAMINATION: US ABDOMEN LIMITED CLINICAL INFORMATION: Right upper quadrant pain. Question cholecystitis.. COMPARISON: None available. TECHNIQUE: Real-time imaging of the right upper quadrant abdominal viscera. FINDINGS: PANCREAS: Normal. LIVER: The liver is normal in size. The liver contour is normal. Parenchymal echogenicity is normal. Linear calcifications seen in the right hepatic lobe question calcified vessels versus scar. No focal hepatic lesion. There is no intrahepatic biliary duct dilatation seen. Normal hepatopedal flow seen in the main portal vein on Doppler exam GALLBLADDER: Normal. The gallbladder is physiologically distended without evidence of stones, sludge, polyps, wall thickening or pericholecystic fluid. COMMON BILE DUCT: Normal in caliber measuring 0.28 cm in diameter. RIGHT KIDNEY: Normal. No hydronephrosis. No renal calculi or focal parenchymal lesions. The kidney measures 10.5 cm in maximum dimension. FREE FLUID: None. US/US abdomen limited IMPRESSION: Unremarkable gallbladder, pancreas and right kidney. Linear calcification in the right hepatic lobe scar versus calcified vessel.
[2023-04-08 11:21] VITALS: BP 106/67; PULSE 67; RESP 16; TEMP 37.2; O2SAT 97; BMI 29.0
--- NOTE | 2023-04-08 11:35 | ED_ITS ---
HPI - Abdominal Pain General Chief Complaint: Abdominal Pain Stated Complaint: abd pain Time Seen by Provider: 04/08/23 11:35 Source: patient Mode of arrival: ambulatory Limitations: no limitations History of Present Illness HPI narrative: Patient with history of constipation complaining of upper abdominal pain with nausea was seen here 2 days ago. No fever no chills no recent no urinary symptoms Related Data Previous Rx's Medication Instructions Recorded ibuprofen 400 mg tablet 400 mg PO Q6H PRN pain #20 tabs 04/16/22 amoxicillin 875 mg-potassium 1 tab PO BID 10 days #20 tabs 05/11/22 clavulanate 125 mg tablet diphenhydramine HCl 25 mg capsule 25 mg PO TID PRN sleep #14 caps 05/11/22 (Benadryl) ketorolac 10 mg tablet 10 mg PO Q8H PRN pain #10 tabs 05/11/22 amoxicillin 500 mg capsule 500 mg PO BID 7 days #14 caps 05/12/22 xdrznufugm-txumfebvlartb-dvqfbxhz 1 tab PO Q6H PRN pain #20 tabs 05/12/22 50 mg-325 mg-40 mg tablet cyclobenzaprine 10 mg tablet 10 mg PO TID PRN muscle spasm #14 05/12/22 tabs lactobacillus combination no.4 3 3,000 mmu cells PO DAILY #14 caps 05/12/22 billion cell capsule (Probiotic) ofloxacin 0.3 % ear drops 10 drp otic (ears) DAILY 7 days #5 05/12/22 mL ondansetron 4 mg disintegrating 4 mg PO Q8H PRN nausea and 05/12/22 tablet vomiting #20 tabs ondansetron 4 mg disintegrating 4 mg PO Q6H PRN nausea and 04/06/23 tablet vomiting #10 tabs omeprazole 40 mg capsule,delayed 40 mg PO DAILY #30 caps 04/08/23 release polyethylene glycol 3350 17 17 g PO DAILY #510 grams 04/08/23 gram/dose oral powder (Miralax) Allergies Allergy/AdvReac Type Severity Reaction Status Date / Time No Known Allergies Allergy Verified 05/12/22 20:36 Review of Systems Review of Systems Yes all other systems are reviewed and are negative PMFSH Past Medical History Medical History Migraine Otitis media Sinusitis Social History Social History Alcohol intake: former Patient Tobacco Use Status: Current someday Tobacco user Substance Use Type: Marijuana Advance Directives: No Advance Directives Information Provided: No Physical Exam ED Vital Signs: Vital Signs - 24 hr 04/08/23 11:21 Temperature 98.9 F Pulse Rate 67 Respiratory Rate 16 Blood Pressure 106/67 Pulse Oximetry 97 Oxygen Delivery Method Room Air BMI result Body Mass Index 29.0 Appearance: Alert. Oriented X3. No acute distress. Eyes: No pallor ENT: Pharynx normal. Oral Mucosa moist Neck: Normal inspection. Neck supple. CVS: Normal heart rate and rhythm. Pulses normal. Respiratory: No respiratory distress. Equal air entry bilateral, no wheezing/rales/rhonchi Abdomen: Soft tenderness in epigastric and right upper quadrant no rebound tenderness or guarding Bowel sounds are present, no mass palpable, no CVA tenderness Skin: Skin warm and dry. Normal skin color. Normal skin turgor. Extremities: No lower extremity edema. No calf tenderness Neuro: Oriented X 3. No motor deficit. Medical Decision Making Medical Decision Making [facility] Narrative: Lab workup is stable ultrasound negative for gallstones. Will discharge patient home on stool softener and Prilosec Lab Data [facility] Lab Attestation statement: I reviewed the patient's lab results. 04/08/23 11:44 04/08/23 11:44 Labs: Lab Results 04/08/23 04/08/23 04/08/23 Range/Units 11:44 11:44 11:54 WBC 7.5 (4.8-10.8) X10*3/uL RBC 3.95 L (4.20-5.50) X10*6/uL Hgb 12.3 (12.0-16.0) g/dl Hct 36.7 L (37.0-47.0) % MCV 92.9 (80.0-98.0) fL MCH 31.1 (27.0-33.0) pg MCHC 33.5 (31.0-35.0) g/dl RDW 12.6 (11.0-16.0) % Plt Count 282 (160-400) X10*3/uL MPV 10.3 (9.4-12.3) fL Immature Gran % (Auto) 0.3 (0.0-0.4) % Neut % (Auto) 72.0 (45-73) % Lymph % (Auto) 19.6 L (20-40) % [place] % (Auto) 7.3 (2-11) % Eos % (Auto) 0.4 (0-4) % Baso % (Auto) 0.4 (0-2) % Lymph # (Auto) 1.5 (1.2-4.9) X10*3/uL [place] # (Auto) 0.6 (0.1-1.2) X10*3/uL Eos # (Auto) 0.0 (0.0-0.4) X10*3/uL Baso # (Auto) 0.0 (0.0-0.2) X10*3/uL Abs Immat Gran (auto) 0.02 (0.00-0.03) X10*3/uL Absolute Neuts (auto) 5.4 (2.0-8.3) x10*3/uL Absolute Nucleated RBC 0.000 (0.0-0.012) X10*3/uL Nucleated RBC % (auto) 0.0 (0.0-0.2) /100WBC Sodium 141 (135-145) mmol/L Potassium 4.4 (3.3-5.1) mmol/L Chloride 109 H (96-108) mmol/L Carbon Dioxide 24 (22-29) mmol/L Anion Gap 12 (12-20) BUN 10 (9-16) mg/dL Creatinine 0.77 (0.5-1.4) mg/dL Estim Creat Clear Calc 68.6 Estimated GFR > 60 Random Glucose 97 (60-115) mg/dL Calcium 9.6 (8.4-10.2) mg/dL Total Bilirubin 0.2 (0.0-1.0) mg/dL Direct Bilirubin < 0.2 (0.0-0.5) mg/dL AST 12 (5-31) U/L ALT 6 (0-31) U/L Alkaline Phosphatase 54 (39-117) U/L Total Protein 6.7 (6.5-8.0) g/dL Albumin 3.6 (3.5-5.0) g/dL Lipase 12 (8-78) U/L Urine Color Yellow Urine Appearance Clear Urine pH 7.0 (5.0-9.0) Ur Specific [place] 1.010 (1.005-1.025) Urine Protein Negative (Neg-Trace) mg/dL Urine Glucose (UA) Negative (Negative) mg/dL Urine Ketones Negative (Negative) mg/dL Urine Blood Negative (Negative) Urine Nitrite Negative (Negative) Ur Leukocyte Esterase Negative (Negative) Urine Test (NEGATIVE) 04/08/23 Range/Units 11:54 WBC (4.8-10.8) X10*3/uL RBC (4.20-5.50) X10*6/uL Hgb (12.0-16.0) g/dl Hct (37.0-47.0) % MCV (80.0-98.0) fL MCH (27.0-33.0) pg MCHC (31.0-35.0) g/dl RDW (11.0-16.0) % Plt Count (160-400) X10*3/uL MPV (9.4-12.3) fL Immature Gran % (Auto) (0.0-0.4) % Neut % (Auto) (45-73) % Lymph % (Auto) (20-40) % [place] % (Auto) (2-11) % Eos % (Auto) (0-4) % Baso % (Auto) (0-2) % Lymph # (Auto) (1.2-4.9) X10*3/uL [place] # (Auto) (0.1-1.2) X10*3/uL Eos # (Auto) (0.0-0.4) X10*3/uL Baso # (Auto) (0.0-0.2) X10*3/uL Abs Immat Gran (auto) (0.00-0.03) X10*3/uL Absolute Neuts (auto) (2.0-8.3) x10*3/uL Absolute Nucleated RBC (0.0-0.012) X10*3/uL Nucleated RBC % (auto) (0.0-0.2) /100WBC Sodium (135-145) mmol/L Potassium (3.3-5.1) mmol/L Chloride (96-108) mmol/L Carbon Dioxide (22-29) mmol/L Anion Gap (12-20) BUN (9-16) mg/dL Creatinine (0.5-1.4) mg/dL Estim Creat Clear Calc Estimated GFR Random Glucose (60-115) mg/dL Calcium (8.4-10.2) mg/dL Total Bilirubin (0.0-1.0) mg/dL Direct Bilirubin (0.0-0.5) mg/dL AST (5-31) U/L ALT (0-31) U/L Alkaline Phosphatase (39-117) U/L Total Protein (6.5-8.0) g/dL Albumin (3.5-5.0) g/dL Lipase (8-78) U/L Urine Color Urine Appearance Urine pH (5.0-9.0) Ur Specific [place] (1.005-1.025) Urine Protein (Neg-Trace) mg/dL Urine Glucose (UA) (Negative) mg/dL Urine Ketones (Negative) mg/dL Urine Blood (Negative) Urine Nitrite (Negative) Ur Leukocyte Esterase (Negative) Urine Test NEGATIVE (NEGATIVE) Medications Administered Discontinued Medications Generic Name Dose Route Start Last Admin Trade Name Freq PRN Reason Stop Dose Admin Ondansetron HCl 4 mg 04/08/23 12:15 04/08/23 12:21 Ondansetron Odt 4 Mg Tab.Rapdis TRANSLINGU 04/08/23 12:16 4 mg ONCE ONE Administration Tramadol HCl 50 mg 04/08/23 12:15 04/08/23 12:21 Tramadol Hcl 50 Mg Tablet PO 04/08/23 12:16 50 mg ONCE ONE Administration Discharge Plan Discharge Clinical Impression: Gastritis, Constipation Patient Disposition: Home, Self-Care Instructions: Gastritis (ED), Constipation (ED) Additional Instructions: Take stool softeners as prescribed Medicine for acid reflux Follow with PCP Prescriptions: New omeprazole 40 mg capsule,delayed release(DR/EC) 40 mg PO DAILY Qty: 30 0RF polyethylene glycol 3350 [Miralax] 17 gram/dose powder 17 g PO DAILY Qty: 510 0RF No Action ibuprofen 400 mg tablet 400 mg PO Q6H PRN (Reason: pain) Qty: 20 0RF amoxicillin-pot clavulanate 875-125 mg tablet 1 tab PO BID 10 Days Qty: 20 0RF ketorolac 10 mg tablet 10 mg PO Q8H PRN (Reason: pain) Qty: 10 0RF Rx Instructions: Given 1st dose in the ED diphenhydramine HCl [Benadryl] 25 mg capsule 25 mg PO TID PRN (Reason: sleep) Qty: 14 0RF cyclobenzaprine 10 mg tablet 10 mg PO TID PRN (Reason: muscle spasm) Qty: 14 0RF amoxicillin 500 mg capsule 500 mg PO BID 7 Days Qty: 14 0RF sawhkhnxxc-idbadrllncbnw-zqst 50-325-40 mg tablet 1 tab PO Q6H PRN (Reason: pain) Qty: 20 0RF ofloxacin 0.3 % drops 10 drp otic (ears) DAILY 7 Days Qty: 5 0RF ondansetron 4 mg tablet,disintegrating 4 mg PO Q8H PRN (Reason: nausea and vomiting) Qty: 20 0RF Probiotic 3 billion cell capsule 3,000 mmu cells PO DAILY Qty: 14 0RF Rx Instructions: administer with a meal ondansetron 4 mg tablet,disintegrating 4 mg PO Q6H PRN (Reason: nausea and vomiting) Qty: 10 0RF
[2023-04-08 11:50] LABS: MANUAL DIFF FLAG NO
[2023-04-08 11:52] LABS: Basophils Percent Auto 0.4 % (0-2); Eosinophils Percent Auto 0.4 % (0-4); Hematocrit 36.7 % (37.0-47.0); Hemoglobin 12.3 g/dl (12.0-16.0); Imm Gran Abs Auto 0.02 X10*3/uL (0.00-0.03); Imm Gran Pct Auto 0.3 % (0.0-0.4); Lymphocytes Absolute Auto 1.5 X10*3/uL (1.2-4.9); Lymphocytes Percent Auto 19.6 % (20-40); Mean Corpuscular HGB Conc 33.5 g/dl (31.0-35.0); Mean Corpuscular Hemoglobin 31.1 pg (27.0-33.0); Mean Corpuscular Volume 92.9 fL (80.0-98.0); Mean Platelet Volume 10.3 fL (9.4-12.3); Monocytes Absolute Auto 0.6 X10*3/uL (0.1-1.2); Monocytes Percent Auto 7.3 % (2-11); Neutrophils Absolute Auto 5.4 x10*3/uL (2.0-8.3); Platelet Count 282 X10*3/uL (160-400); Red Blood Count 3.95 X10*6/uL (4.20-5.50); Red Cell Distribution Width 12.6 % (11.0-16.0); White Blood Count 7.5 X10*3/uL (4.8-10.8)
[2023-04-08 12:12] LABS: Appearance Urine Clear; Color Urine Yellow; Glucose Urine UA Negative (Negative); Leukocyte Esterase Urine Negative (Negative); Nitrite Urine Negative (Negative); Urine Blood Negative (Negative); Urine Ketones Negative (Negative); Urine Protein Negative (Neg-Trace)
[2023-04-08 12:14] LABS: UPreg QC Valid YES; Urine Pregnancy NEGATIVE (NEGATIVE)
[2023-04-08] MEDS: Ondansetron ODT 4 MG TAB.RAPDIS TRANSLINGU (12:21)
[2023-04-08] MEDS: traMADoL HCL 50 MG TABLET PO (12:21)
[2023-04-08 12:26] LABS: Alanine Aminotransferase 6 U/L (0-31); Albumin Level 3.6 g/dL (3.5-5.0); Alkaline Phosphatase 54 U/L (39-117); Anion Gap 12 (12-20); Aspartate Amino Transferase 12 U/L (5-31); Bilirubin Direct < 0.2 mg/dL (0.0-0.5); Bilirubin Total 0.2 mg/dL (0.0-1.0); Blood Urea Nitrogen 10 mg/dL (9-16); Calcium 9.6 mg/dL (8.4-10.2); Carbon Dioxide 24 mmol/L (22-29); Chloride 109 mmol/L (96-108); Creatinine Clr Calc Pharmacy 68.6; Estimated Glomerular Filt Rate > 60; Glucose Random 97 mg/dL (60-115); Lipase 12 U/L (8-78); Potassium 4.4 mmol/L (3.3-5.1); Sodium 141 mmol/L (135-145); Total Protein 6.7 g/dL (6.5-8.0)
[2023-04-08] MEDS: Milk of Magnesia 30 ML ORAL.SUSP PO (14:11)
[2023-04-08] MEDS: bisacodyL 5 MG TABLET.DR 10 MG PO (14:11)
== END 2023-04-08 14:18 | disposition home or self-care (01) ==
PROVIDERS: Emergency Provider Internal Medicine; PCP Internal Medicine
DX: K29.70 Gastritis, unspecified, without bleeding (principal); K59.00 Constipation, unspecified; R10.11 Right upper quadrant pain; F17.210 Nicotine dependence, cigarettes, uncomplicated; Z71.6 Tobacco abuse counseling; Z79.899 Other long term (current) drug therapy
CPT/HCPCS: 36415; 76705; 80048; 80076; 81003; 81025; 83690; 85025; 99283

== ENCOUNTER 2023-10-18 15:00 | Emergency (ER) | payer OTHER, SELFPAY ==
[2023-10-18 15:44] VITALS: BP 110/52; PULSE 82; RESP 14; TEMP 36.8; O2SAT 94; BMI 27.7
--- NOTE | 2023-10-18 15:54 | ED.SKABFB ---
HPI - Skin/Abscess/Foreign Bdy General Chief complaint: Burn/Smoke Inhalation Stated complaint: right hand burn Time Seen by Provider: 10/18/23 15:49 Source: patient and RN notes reviewed Mode of arrival: ambulatory Limitations: no limitations History of Present Illness HPI narrative: This is a 38-year-old female presenting to the emergency department with complaints of burn to her right hand the last 2 days. Patient states that she accidentally spilled grease on her right hand. She has been washing the area however has had increasing pain and swelling. No fevers or chills. She is able to move her right hand without difficulty. She does report that she had blisters on her hands which is since burst. She has been taking Tylenol for her pain. She is right handed. Unsure of her last tetanus immunization. No other complaints or concerns at this time MD complaint: other (Burn) Onset (ago): day(s) Tetanus up to date: unsure Location: R hand Severity: moderate Quality: burning Pain Consistency: constant Relieving factors: none Exacerbating factors: none Context: none Associated symptoms: denies other symptoms Treatments prior to arrival: none Related Data Previous Rx's Medication Instructions Recorded ibuprofen 400 mg tablet 400 mg PO Q6H PRN pain #20 tabs 04/16/22 amoxicillin 875 mg-potassium 1 tab PO BID 10 days #20 tabs 05/11/22 clavulanate 125 mg tablet diphenhydramine HCl 25 mg capsule 25 mg PO TID PRN sleep #14 caps 05/11/22 (Benadryl) ketorolac 10 mg tablet 10 mg PO Q8H PRN pain #10 tabs 05/11/22 amoxicillin 500 mg capsule 500 mg PO BID 7 days #14 caps 05/12/22 khrhbwnqsm-rbmwqptvmgfrp-vweybhhj 1 tab PO Q6H PRN pain #20 tabs 05/12/22 50 mg-325 mg-40 mg tablet cyclobenzaprine 10 mg tablet 10 mg PO TID PRN muscle spasm #14 05/12/22 tabs lactobacillus combination no.4 3 3,000 mmu cells PO DAILY #14 caps 05/12/22 billion cell capsule (Probiotic) ofloxacin 0.3 % ear drops 10 drp otic (ears) DAILY 7 days #5 05/12/22 mL ondansetron 4 mg disintegrating 4 mg PO Q8H PRN nausea and 07/01/22 tablet vomiting #20 tabs ondansetron 4 mg disintegrating 4 mg PO Q6H PRN nausea and 04/06/23 tablet vomiting #10 tabs omeprazole 40 mg capsule,delayed 40 mg PO DAILY #30 caps 04/08/23 release polyethylene glycol 3350 17 17 g PO DAILY #510 grams 04/08/23 gram/dose oral powder (Miralax) bacitracin 500 unit/gram topical 1 appl topical QID #14 grams 10/18/23 ointment cephalexin 500 mg capsule 500 mg PO QID 7 days #28 caps 10/18/23 Allergies Allergy/AdvReac Type Severity Reaction Status Date / Time No Known Allergies Allergy Verified 05/12/22 20:36 Review of Systems Review of Systems: Yes all other systems are reviewed and are negative [facility] Past Medical History Attestation statement: The following information was validated with the patient. Medical History Migraine Otitis media Sinusitis Social History Social History Alcohol intake: former Patient Tobacco Use Status: Current someday Tobacco user Substance Use Type: Marijuana Advance Directives: No Advance Directives Information Provided: No Physical Exam Vital Signs: Vital Signs: Last Vital Signs Temp 98.3 F 10/18/23 15:44 Pulse 82 10/18/23 15:44 Resp 14 10/18/23 15:44 BP 110/52 L 10/18/23 15:44 Pulse Ox 94 10/18/23 15:44 O2 Del Method Room Air 10/18/23 15:44 BMI result Body Mass Index 27.7 Const: Other: General: Awake, alert, and oriented X3. No acute distress. HEENT: Normal inspection CVS: Normal heart rate and rhythm. Pulses normal. Respiratory: No respiratory distress Skin: See below Second degree burn noted to the 1st and 2nd digits, tender, with blistering noted. Full range of motion of the digits without difficulty. Some surrounding warmth, good radial pulse, sensation intact. Medications Administered Discontinued Medications Generic Name Dose Route Start Last Admin Trade Name Freq PRN Reason Stop Dose Admin Acetaminophen 975 mg 10/18/23 16:34 10/18/23 16:53 Acetaminophen 325 Mg Tablet PO 10/18/23 16:35 975 mg ONCE ONE Administration Bacitracin 1 appl 10/18/23 16:12 10/18/23 16:37 Bacitracin Oint 0.9 Gm Packet TOPICAL 10/18/23 16:13 1 appl ONCE ONE Administration Protocol Diphtheria/Tetanus/Acell Pertussis 0.5 ml 10/18/23 16:13 10/18/23 16:37 Diphth,Pertus(Acell),Tet Adult 0.5 Ml Syringe IM 10/18/23 16:14 0.5 ml .ONCE ONE Administration Medical Decision Making Medical Decision Making MDM Narrative: 38-year-old female presenting to the emergency department with complaints of grease burn which occurred 2 days ago. On arrival, vital signs within normal limits. Hand with notable second-degree burn noted. Wound was cleansed, and bacitracin applied to burn, updated tetanus in the department today. Patient treated with oral antibiotics and topical antibiotics. Given return precautions. Patient understands and agrees with plan. Patient stable for discharge. Differential Diagnosis Differential Diagnoses: The differential diagnosis associated with the presentation includes Remover, contact dermatitis, cellulitis Discharge Plan Discharge Clinical Impression: Second degree burn of back of right hand Patient Disposition: Home, Self-Care Instructions: Second Degree Burn (ED) Additional Instructions: Your seen in the emergency department due to a second-degree burn to your right hand. Please keep area clean and dry. We applied a antibiotic ointment and wrap this in the emergency room. It is starting to become infected, please take prescribed antibiotic and use topical antibiotic as directed. Finish the entire course of antibiotics even if your feeling better. If any new or worsening symptoms occur including but not limited to fevers, worsening redness, swelling, please return for re-evaluation. Lo atendieron en el departamento de emergencias debido a kristine quemadura de jonas ashley en olivera mano derecha. Mantenga el ?irma limpia y seca. Le aplicamos kristine pomada antibi?letty y la envolvimos en urgencias. Est? comenzando a infectarse, tome el antibi?simon recetado y use un antibi?simon t?stephanie seg?n las indicaciones. Termine todo el tratamiento con antibi?ticos incluso si se siente mejor. Si se presenta alg?n s?ntoma nuevo o que empeora, incluidos, entre otros, fiebre, enrojecimiento que empeora o hinchaz?n, regrese para kristine nueva evaluaci?n. Prescriptions: New cephalexin 500 mg capsule 500 mg PO QID 7 Days Qty: 28 0RF bacitracin 500 unit/gram ointment 1 appl topical QID Qty: 14 0RF No Action ibuprofen 400 mg tablet 400 mg PO Q6H PRN (Reason: pain) Qty: 20 0RF amoxicillin-pot clavulanate 875-125 mg tablet 1 tab PO BID 10 Days Qty: 20 0RF ketorolac 10 mg tablet 10 mg PO Q8H PRN (Reason: pain) Qty: 10 0RF Rx Instructions: Given 1st dose in the ED diphenhydramine HCl [Benadryl] 25 mg capsule 25 mg PO TID PRN (Reason: sleep) Qty: 14 0RF cyclobenzaprine 10 mg tablet 10 mg PO TID PRN (Reason: muscle spasm) Qty: 14 0RF amoxicillin 500 mg capsule 500 mg PO BID 7 Days Qty: 14 0RF adhvhnpprm-xmrtubwbpoimr-fuwq 50-325-40 mg tablet 1 tab PO Q6H PRN (Reason: pain) Qty: 20 0RF ofloxacin 0.3 % drops 10 drp otic (ears) DAILY 7 Days Qty: 5 0RF ondansetron 4 mg tablet,disintegrating 4 mg PO Q8H PRN (Reason: nausea and vomiting) Qty: 20 0RF Probiotic 3 billion cell capsule 3,000 mmu cells PO DAILY Qty: 14 0RF Rx Instructions: administer with a meal ondansetron 4 mg tablet,disintegrating 4 mg PO Q6H PRN (Reason: nausea and vomiting) Qty: 10 0RF omeprazole 40 mg capsule,delayed release(DR/EC) 40 mg PO DAILY Qty: 30 0RF polyethylene glycol 3350 [Miralax] 17 gram/dose powder 17 g PO DAILY Qty: 510 0RF Interventions: ED Discharge Assessment Last Done: 10/18/23 17:03 Discharge Date/Time: 10/18/23 17:03 Print Language: Turkish
[2023-10-18] MEDS: Bacitracin Oint 0.9 GM PACKET 1 APPL TOPICAL (16:37)
[2023-10-18] MEDS: Diphth,Pertus(ACell),Tet Adult 0.5 ML SYRINGE IM (16:37)
[2023-10-18] MEDS: Acetaminophen 325 MG TABLET 975 MG PO (16:53)
== END 2023-10-18 17:03 | disposition home or self-care (01) ==
PROVIDERS: Emergency Provider Emergency Medicine Emergency Medical Services
DX: T23.241A Burn of second degree of multiple right fingers (nail), including thumb, initial encounter (principal); X10.2XXA Contact with fats and cooking oils, initial encounter; Y93.9 Activity, unspecified; Y92.9 Unspecified place or not applicable; Y99.9 Unspecified external cause status
CPT/HCPCS: 90471; 90715; 99283; 99284

== ENCOUNTER 2024-03-25 10:13 | Emergency (ER) | payer OTHER, SELFPAY ==
[2024-03-25 10:55] VITALS: BP 101/57; PULSE 95; RESP 18; TEMP 36.7; O2SAT 100; BMI 25.3
[2024-03-25 11:14] LABS: IDNOW Serial# 08D9AD1C; Strep A Nucleic Acid Negative (Negative)
[2024-03-25 11:57] LABS: Influenza A PCR NEGATIVE (Negative); Influenza B PCR NEGATIVE (Negative); Resp Syncy Virus RNA Qual PCR NEGATIVE (Negative); SARS COV2 PCR INHOUSE NEGATIVE (Negative)
--- NOTE | 2024-03-25 13:48 | ED.GENADULT ---
HPI - General Adult General Chief complaint: Upper Respiratory Symptoms Stated complaint: Sore Throat Fever Earache Time Seen by Provider: 03/25/24 13:40 Source: patient Mode of arrival: ambulatory Limitations: no limitations History of Present Illness HPI narrative: 38 yold female presents to the ED for migraine, oitits media, and sinusiitis presents to the ED for fever, sore throat, sinus headhache, and left ear pain. Patient denies any chest pain or shortness of breath. Related Data Previous Rx's ?Medication ?Instructions ?Recorded ibuprofen 400 mg tablet 400 mg PO Q6H PRN pain #20 tabs 04/16/22 amoxicillin 875 mg-potassium 1 tab PO BID 10 days #20 tabs 05/11/22 clavulanate 125 mg tablet diphenhydramine HCl 25 mg capsule 25 mg PO TID PRN sleep #14 caps 05/11/22 (Benadryl) ketorolac 10 mg tablet 10 mg PO Q8H PRN pain #10 tabs 05/11/22 amoxicillin 500 mg capsule 500 mg PO BID 7 days #14 caps 05/12/22 ggmdiwppot-dvdqidspinvqf-ihvweuit 1 tab PO Q6H PRN pain #20 tabs 05/12/22 50 mg-325 mg-40 mg tablet cyclobenzaprine 10 mg tablet 10 mg PO TID PRN muscle spasm #14 05/12/22 tabs lactobacillus combination no.4 3 3,000 mmu cells PO DAILY #14 caps 05/12/22 billion cell capsule (Probiotic) ofloxacin 0.3 % ear drops 10 drp otic (ears) DAILY 7 days #5 05/12/22 mL ondansetron 4 mg disintegrating 4 mg PO Q8H PRN nausea and 05/12/22 tablet vomiting #20 tabs ondansetron 4 mg disintegrating 4 mg PO Q6H PRN nausea and 04/06/23 tablet vomiting #10 tabs omeprazole 40 mg capsule,delayed 40 mg PO DAILY #30 caps 04/08/23 release polyethylene glycol 3350 17 17 g PO DAILY #510 grams 04/08/23 gram/dose oral powder (Miralax) bacitracin 500 unit/gram topical 1 appl topical QID #14 grams 10/18/23 ointment cephalexin 500 mg capsule 500 mg PO QID 7 days #28 caps 10/18/23 amoxicillin 875 mg-potassium 1 tab PO Q12H 10 days #20 tabs 03/25/24 clavulanate 125 mg tablet naproxen 500 mg tablet 500 mg PO BID PRN pain 7 days #14 03/25/24 tabs Allergies Allergy/AdvReac Type Severity Reaction Status Date / Time No Known Allergies Allergy Verified 03/25/24 10:58 Review of Systems Review of Systems: sore throat, fever, left ear pain Yes all other systems are reviewed and are negative [facility] Past Medical History Medical History Migraine Otitis media Sinusitis Social History Social History Alcohol intake: former Patient Tobacco Use Status: Current someday Tobacco user Substance Use Type: Marijuana Advance Directives: No Do you have a plan to hurt others: No Plan Physical Exam ED Vital Signs: Vital Signs - 24 hr 03/25/24 10:55 03/25/24 13:57 Temperature 98.1 F 98.1 F Pulse Rate 95 88 Respiratory Rate 18 18 Blood Pressure 101/57 L 103/68 Pulse Oximetry 100 100 Oxygen Delivery Method Room Air Room Air BMI result Body Mass Index 25.3 Const General: cooperative, healthy appearing, comfortable, no acute distress, well developed, alert, awake and Physically active Orientation/consciousness: patient oriented x3 HENMT Head: Yes normal to inspection, Yes No palpable skull fracture present, Yes normocephalic and Yes atraumatic Ears: hearing grossly normal bilaterally, external ears normal, TM's normal bilaterally, TM normal on the right, TM normal on the left, EAC's normal, mastoids normal and no periauricular adenopathy General nose exam: Normal external nose present, Normal nares present and No nasal polyps present Face and sinus: Yes normal facial exam, Yes sinuses nontender and Yes face symmetric Throat: Yes posterior oropharynx normal, Yes uvula midline and Yes abnormal tonsil (bilateral exduates on tonsils. negative signs of Peritonsillar abscess) Eyes General: appearance normal, both eyes and all related structures Neck Neck: Yes normal visual inspection, Yes full ROM, Yes no lymphadenopathy, Yes no meningeal signs, Yes trachea midline, Yes supple, No anterior neck swelling and No tender Chest Chest palpation & inspection: normal inspection of the chest and normal palpation of entire chest wall Resp Effort & Inspection: normal respiratory effort and able to speak in complete sentences Cardio Jugular venous distension: no JVD Heart sounds: S1 normal heart sound present and S2 normal heart sound present GI Inspection: Yes normal to inspection Palpation (GI): Soft to palpation, not firm, nontender, no guarding and not rigid General: Yes no CVA tenderness Back/Spine/Pelvis Back: no CVA tenderness and No back tenderness Skin General skin exam: no rashes or lesions noted, elasticity normal and turgor normal Neuro General: patient oriented x3, gait normal, tone normal, moves all extremities, Normal light touch and pain sensation, no meningeal signs, no focal motor deficits, CN's II-XI intact bilaterally and normal sensation to monofilament Extrem General: Yes normal to inspection, Yes full ROM and Yes capillary refill normal Psych Appearance: grossly normal, well kempt and not disheveled Medical Decision Making Medical Decision Making MDM Narrative: [age] year female history of strep presents to the ED for fever, sore throat, headache, and left ear pain. Physical exam positive for bilateral exudates. Negative for signs of peritonsillar abscess. Exam normal. Lungs are clear. Patient to be discharged with antibiotics. Patient explained worrisome signs. negative for signs of Peritonsillar abscess, jerry angina, pneumonia, otitis media, otisis externa, or epiglotiits Differential Diagnosis Differential Diagnoses: The differential diagnosis associated with the presentation includes (Strep, COVID, influenza, SARs) Admission/Observation Consideration of admission/observation: Escalation of care including admission/observation considered Lab Data [facility] Lab Attestation statement: I reviewed the patient's lab results. Labs: Lab Results 03/25/24 Range/Units 11:01 Influenza Type A (PCR) NEGATIVE (Negative) Influenza Type B (PCR) NEGATIVE (Negative) RSV RNA Qual (PCR) NEGATIVE (Negative) SARS-CoV-2 RNA (RT-PCR) NEGATIVE (Negative) S. pyogenes GrpA CINDY Negative (Negative) Independent Historian Clinical information obtained from an independent historian. History obtained from or confirmed by: Other (Patient) External Record Review External record reviewed: Other (Prior visits) Prescription Management I considered prescription management with: Pain Medication and Antibiotic Discharge Plan Discharge Clinical Impression: Pharyngitis Patient Disposition: Home, Self-Care Instructions: Pharyngitis (ED) Additional Instructions: Recommend follow-up with primary care provider. Return to the ED immediately for any worsening sore throat, drooling, inability tolerate solid food/liquid, chest pain, shortness of breath, neck swelling, neck pain, or any other concerning symptoms. Prescriptions: New amoxicillin-pot clavulanate 875-125 mg tablet 1 tab PO Q12H 10 Days Qty: 20 0RF naproxen 500 mg tablet 500 mg PO BID PRN (Reason: pain) 7 Days Qty: 14 0RF No Action ibuprofen 400 mg tablet 400 mg PO Q6H PRN (Reason: pain) Qty: 20 0RF amoxicillin-pot clavulanate 875-125 mg tablet 1 tab PO BID 10 Days Qty: 20 0RF ketorolac 10 mg tablet 10 mg PO Q8H PRN (Reason: pain) Qty: 10 0RF Rx Instructions: Given 1st dose in the ED diphenhydramine HCl [Benadryl] 25 mg capsule 25 mg PO TID PRN (Reason: sleep) Qty: 14 0RF cyclobenzaprine 10 mg tablet 10 mg PO TID PRN (Reason: muscle spasm) Qty: 14 0RF amoxicillin 500 mg capsule 500 mg PO BID 7 Days Qty: 14 0RF mjtsprtmyj-rjquhyixfvhgy-yduu 50-325-40 mg tablet 1 tab PO Q6H PRN (Reason: pain) Qty: 20 0RF ofloxacin 0.3 % drops 10 drp otic (ears) DAILY 7 Days Qty: 5 0RF ondansetron 4 mg tablet,disintegrating 4 mg PO Q8H PRN (Reason: nausea and vomiting) Qty: 20 0RF Probiotic 3 billion cell capsule 3,000 mmu cells PO DAILY Qty: 14 0RF Rx Instructions: administer with a meal ondansetron 4 mg tablet,disintegrating 4 mg PO Q6H PRN (Reason: nausea and vomiting) Qty: 10 0RF omeprazole 40 mg capsule,delayed release(DR/EC) 40 mg PO DAILY Qty: 30 0RF polyethylene glycol 3350 [Miralax] 17 gram/dose powder 17 g PO DAILY Qty: 510 0RF cephalexin 500 mg capsule 500 mg PO QID 7 Days Qty: 28 0RF bacitracin 500 unit/gram ointment 1 appl topical QID Qty: 14 0RF Stand Alone Forms: Work/School Release Interventions: ED Discharge Assessment Last Done: 03/25/24 13:57 Discharge Date/Time: 03/25/24 13:58 Print Language: Icelandic
[2024-03-25 13:57] VITALS: BP 103/68; PULSE 88; RESP 18; TEMP 36.7; O2SAT 100
== END 2024-03-25 13:58 | disposition home or self-care (01) ==
PROVIDERS: Emergency Provider Emergency Medicine; PCP Internal Medicine
DX: J02.9 Acute pharyngitis, unspecified (principal); H92.02 Otalgia, left ear; R51.9 Headache, unspecified; Z03.818 Encounter for observation for suspected exposure to other biological agents ruled out
CPT/HCPCS: 0241U; 87651; 99282; 99283

== ENCOUNTER 2024-03-27 13:02 | Emergency (ER) | payer OTHER, SELFPAY ==
--- NOTE | ~2024-03-27 | CT_ITS ---
EXAMINATION: CT SOFT TISSUE NECK WITH CONTRAST CLINICAL INFORMATION: Neck pain. COMPARISON: None available. TECHNIQUE: Following intravenous administration of 60 mL of Omnipaque 350 contrast, helical imaging was performed in the axial plane with generation of coronal and sagittal reformatted images. This CT examination was performed using dose optimization techniques as appropriate, variously including the following: *Automated exposure control *Adjustment of mA and/or kV according to patient size (this includes techniques or standardized protocols for targeted exams where dose is matched to indication/reason for exam; i.e. extremities or head) *Use of iterative reconstruction technique DLP: 303 mGy-cm FINDINGS: No contour abnormality or pathologic enhancement is seen within the oral cavity, pharyngeal mucosal space, or larynx. Lobulated lingular tonsillar tissue noted along the tongue base with mild posterior deflection of the epiglottis. The airway is otherwise well maintained. No retropharyngeal fluid collection is seen. There is a reversal of the normal cervical lordosis. The parotid and submandibular glands are homogeneous in attenuation. Conspicuous internal jugular chain lymph nodes are present bilaterally. The jugulodigastric lymph nodes are mildly enlarged, measuring up to 1.8 cm in long axis dimension in the axial plane. Bilateral level II and III lymph nodes measure up to 1.1 cm in diameter. No extra-mucosal fluid collections are seen. The thyroid gland is mildly heterogeneous with subcentimeter nodules versus cysts, for which no further imaging follow-up is indicated. Mild amount of suspected residual thymic tissue noted in the anterior mediastinum. The visualized axillae appear normal. The imaged portions of the lungs are clear. No acute osseous abnormality is seen. There is a perforated defect in the anteroinferior cartilaginous nasal septum with a moderate rightward deviation. There is hyperemia of the left inferior turbinate. Mild aerosolized secretions visible in the posterior right ethmoid air cells. The middle ear cavities and mastoid air cells are clear. The orbits are normal in appearance. The temporomandibular joints are normal. No periapical lucencies are seen in the dentition. The imaged portions of the brain demonstrate no acute abnormality. CT/CT soft tissue neck w IV con IMPRESSION: Mild bilateral internal jugular chain adenopathy which may be infectious or inflammatory in etiology, otherwise nonspecific. No suspicious abnormal enhancement or fluid collection in the pharyngeal mucosal space or oral cavity. Reversal of the normal cervical lordosis. Perforated defect in the anteroinferior cartilaginous nasal septum, otherwise nonspecific. Hyperemic appearance of the left inferior turbinate; correlate with findings on direct visual inspection.
--- NOTE | 2024-03-27 13:24 | ED.GENADULT ---
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 Able to swallow her saliva, no drooling, no voice change, no shortness of breath, no chest pain. Patient was seen in the emergency department 2 days ago started on Augmentin and naproxen return for persistent fever and seeing exudate on her left tonsils. Related Data Previous Rx's ?Medication ?Instructions ?Recorded ibuprofen 400 mg tablet 400 mg PO Q6H PRN pain #20 tabs 04/16/22 amoxicillin 875 mg-potassium 1 tab PO BID 10 days #20 tabs 05/11/22 clavulanate 125 mg tablet diphenhydramine HCl 25 mg capsule 25 mg PO TID PRN sleep #14 caps 05/11/22 (Benadryl) ketorolac 10 mg tablet 10 mg PO Q8H PRN pain #10 tabs 05/11/22 amoxicillin 500 mg capsule 500 mg PO BID 7 days #14 caps 05/12/22 bvxybucrfq-osayoqsbgajdt-cyttyvwt 1 tab PO Q6H PRN pain #20 tabs 05/12/22 50 mg-325 mg-40 mg tablet cyclobenzaprine 10 mg tablet 10 mg PO TID PRN muscle spasm #14 05/12/22 tabs lactobacillus combination no.4 3 3,000 mmu cells PO DAILY #14 caps 05/12/22 billion cell capsule (Probiotic) ofloxacin 0.3 % ear drops 10 drp otic (ears) DAILY 7 days #5 05/12/22 mL ondansetron 4 mg disintegrating 4 mg PO Q8H PRN nausea and 05/12/22 tablet vomiting #20 tabs ondansetron 4 mg disintegrating 4 mg PO Q6H PRN nausea and 04/06/23 tablet vomiting #10 tabs omeprazole 40 mg capsule,delayed 40 mg PO DAILY #30 caps 04/08/23 release polyethylene glycol 3350 17 17 g PO DAILY #510 grams 04/08/23 gram/dose oral powder (Miralax) bacitracin 500 unit/gram topical 1 appl topical QID #14 grams 10/18/23 ointment cephalexin 500 mg capsule 500 mg PO QID 7 days #28 caps 10/18/23 amoxicillin 875 mg-potassium 1 tab PO Q12H 10 days #20 tabs 03/25/24 clavulanate 125 mg tablet naproxen 500 mg tablet 500 mg PO BID PRN pain 7 days #14 03/25/24 tabs prednisone 20 mg tablet 20 mg PO BID #8 tabs 03/27/24 Allergies Allergy/AdvReac Type Severity Reaction Status Date / Time No Known Allergies Allergy Verified 03/27/24 13:29 Review of Systems Review of Systems: All other systems are reviewed and are negative Constitutional: Reports as per HPI and Reports no additional constitutional complaints Eyes: Reports as per HPI and Reports no additional eye complaints Reports system reviewed and no additional complaints, except as documented Cardiovascular: Reports as per HPI and Reports no additional cardiovascular complaints Respiratory: Reports as per HPI and Reports no additional respiratory complaints Gastrointestinal: Reports as per HPI and Reports no additional gastrointestinal complaints Genitourinary: Reports no additional female genitourinary complaints Musculoskeletal: Reports no additional musculoskeletal complaints Skin/Breast: Reports system reviewed and no additional complaints, except as docu Psychiatric: Reports no additional psychiatric complaints Endocrine: Reports no additional endocrine complaints Hematologic/Lymphatic: Reports no additional hematologic/lymphatic complaints Allergic/Immunologic: Reports no additional allergic/immunologic complaints Reports system reviewed and no additional complaints, except as documented and Reports Abnormal speech present [facility] Past Medical History Medical History Migraine Otitis media Sinusitis Social History Social History Alcohol intake: former Patient Tobacco Use Status: Current someday Tobacco user Substance Use Type: Marijuana Advance Directives: No Advance Directives Information Provided: No Physical Exam ED Vital Signs: Vital Signs - 24 hr 03/27/24 13:25 03/27/24 16:15 Temperature 99.3 F 98.4 F Pulse Rate 95 98 Respiratory Rate 16 18 Blood Pressure 113/71 129/76 Pulse Oximetry 97 97 Oxygen Delivery Method Room Air Room Air BMI result Body Mass Index 27.7 Vital signs have been reviewed and appear to be correct. Blood pressure elevated. Heart rate normal. Respiratory rate normal. Temperature normal. Oxygen saturation normal. Appearance: Alert. Oriented X3. No acute distress. Head: Normal external exam. Normocephalic. Atraumatic. No Bunch signs noted. No raccoon eyes noted Eyes: PERRLA. EOMI. Conjunctiva and sclera normal. Eyelids normal. ENT: Left tonsillar exudate with slight her judgment, left cervical lymph node enlargement, patent airway, no stridor, no abscess is appreciated, there is a black dot on the left tonsillar area that has not removable. Neck: Normal inspection. Neck supple. FROM. No adenopathy. Thyroid Normal. No meningeal signs. No neck mass noted. CVS: Normal heart rate and rhythm. Heart sound normal. No murmurs noted. Pulses normal throughout. Respiratory: No respiratory distress. Painless inspiration. Breath sounds normal. No wheezes/rales/rhonchi noted. Chest nontender. No accessory muscle usage noted or decreased air movement noted. Abdomen: Soft and nontender. Bowel sounds normal in all 4 quadrants. No distention noted. No organomegaly noted. No visible injury noted. Back: No CVA tenderness. Full range of motion noted. Skin: Skin warm and dry. Normal skin color. Normal skin turgor. No rashes/lesions/lacerations noted. Extremities: No lower extremity edema. Extremities exhibit normal range of motion. Extremities nontender. Neuro: Oriented X 3. Cranial nerve exam: II-XII are grossly intact No motor deficit. No sensory deficit. Reflexes normal. Course Course Course Narrative: RME performed by Serenity Cooper PA-C. Patient is a 38 year old assigned female at presenting to the emergency department with a fever, sore throat, and feeling generally unwell. Patient was seen on 03/25/2024. Patient states that she was seen here and given antibiotics and naproxen. Patient states that this morning she woke up with a hole in her left tonsil and drainage. Patient states that she hasn't been able to keep her fever down. Detailed physical exam and review of systems are deferred to the director of primary. Labs ordered. Patient placed back in the waiting room pending room availability and results. Reevaluation(s) Reevaluation #1: Sore throat already on Augmentin, patient received Solu-Medrol in the ED now she feels better will add 5 days' course of prednisone. CT of soft tissue neck shows no no abscess in the pharyngeal area with patent airway with some reactive lymph node. Time: 20:32 Medications Administered Discontinued Medications Generic Name Dose Route Start Last Admin Trade Name Rickeyq PRN Reason Stop Dose Admin Sodium Chloride 1,000 mls @ 999 mls/hr 03/27/24 16:20 03/27/24 19:07 Ns IV 03/27/24 17:20 Infused .Q1H1M ONE Infusion Sodium Chloride 1,000 mls @ 999 mls/hr 03/27/24 19:15 03/27/24 19:19 Ns IV 03/27/24 20:15 999 mls/hr .Q1H1M LA NENA Administration Ibuprofen 600 mg 03/27/24 16:13 03/27/24 16:28 Ibuprofen 600 Mg Tablet PO 03/27/24 16:14 600 mg ONCE ONE Administration Iohexol 100 ml 03/27/24 18:55 03/27/24 18:55 Iohexol 350 Mg/Ml 100 Ml Infus..Btl IV 03/27/24 18:56 60 ml ONCE ONE Administration Lidocaine HCl 5 ml 03/27/24 16:22 03/27/24 19:07 Lidocaine Hcl 1 % Mpf 5 Ml Vial INFILTRATI 03/27/24 16:23 Not Given ONCE ONE Methylprednisolone Sodium Succinate 125 mg 03/27/24 16:20 03/27/24 16:37 Methylprednisolone Sod Succ 125 Mg/2 Ml Vial IVPUSH 03/27/24 16:21 125 mg ONCE ONE Administration Medical Decision Making Differential Diagnosis Differential Diagnoses: The differential diagnosis associated with the presentation includes (Viral pharyngeal infection, strep pharyngitis, pharyngeal abscess, airway compromise, sialoadenitis, mononucleosis.) Admission/Observation Consideration of admission/observation: Escalation of care including admission/observation considered Lab Data MDM Lab Attestation statement: I reviewed the patient's lab results. 03/27/24 13:42 03/27/24 13:42 Labs: Lab Results 03/27/24 03/27/24 03/27/24 Range/Units 13:42 16:23 17:55 WBC 11.6 H (4.8-10.8) X10*3/uL RBC 4.05 L (4.20-5.50) X10*6/uL Hgb 12.8 (12.0-16.0) g/dl Hct 37.7 (37.0-47.0) % MCV 93.1 (80.0-98.0) fL MCH 31.6 (27.0-33.0) pg MCHC 34.0 (31.0-35.0) g/dl RDW 12.3 (11.0-16.0) % Plt Count 378 D (160-400) X10*3/uL MPV 9.6 (9.4-12.3) fL Immature Gran % (Auto) 0.5 H (0.0-0.4) % Neut % (Auto) 77.3 H (45-73) % Lymph % (Auto) 14.1 L (20-40) % [place] % (Auto) 7.4 (2-11) % Eos % (Auto) 0.4 (0-4) % Baso % (Auto) 0.3 (0-2) % Lymph # (Auto) 1.6 (1.2-4.9) X10*3/uL [place] # (Auto) 0.9 (0.1-1.2) X10*3/uL Eos # (Auto) 0.1 (0.0-0.4) X10*3/uL Baso # (Auto) 0.0 (0.0-0.2) X10*3/uL Abs Immat Gran (auto) 0.06 H (0.00-0.03) X10*3/uL Absolute Neuts (auto) 9.0 H (2.0-8.3) x10*3/uL Absolute Nucleated RBC 0.000 (0.0-0.012) X10*3/uL Nucleated RBC % (auto) 0.0 (0.0-0.2) /100WBC ESR 47 H (0-20) MM/HR Sodium 141 (135-145) mmol/L Potassium 3.5 (3.3-5.1) mmol/L Chloride 104 (96-108) mmol/L Carbon Dioxide 24 (22-29) mmol/L Anion Gap 17 (12-20) BUN 8 L (9-16) mg/dL Creatinine 0.67 (0.5-1.4) mg/dL Estim Creat Clear Calc 72.3 Estimated GFR > 60 Random Glucose 97 (60-115) mg/dL Lactic Acid 0.6 (0.5-2.0) mmol/L Calcium 9.5 (8.4-10.2) mg/dL Magnesium 2.1 (1.6-2.6) mg/dL Total Bilirubin 0.2 (0.0-1.0) mg/dL AST 13 (5-31) U/L ALT 7 (0-31) U/L Alkaline Phosphatase 73 (39-117) U/L Total Protein 7.8 (6.5-8.0) g/dL Albumin 4.0 (3.5-5.0) g/dL Beta HCG, Quant < 2 mIU/mL Monoscreen Negative (Negative) Influenza Type A (PCR) NEGATIVE (Negative) Influenza Type B (PCR) NEGATIVE (Negative) RSV RNA Qual (PCR) NEGATIVE (Negative) SARS-CoV-2 RNA (RT-PCR) NEGATIVE (Negative) S. pyogenes GrpA CINDY Negative (Negative) Independent Interpretation I performed an independent interpretation of an: CT Scan (Soft tissue neck:Mild bilateral internal jugular chain adenopathy which may be infectious or inflammatory in etiology, otherwise nonspecific. No suspicious abnormal enhancement or fluid collection in the pharyngeal mucosal space or oral cavity. Reversal of the normal cervical lordosis. Perforated ) Radiology Impression Discussion of test interpretation with radiology: I have reviewed the radiologist's reading. Discharge Plan Discharge Clinical Impression: Pharyngitis Patient Disposition: Home, Self-Care Instructions: Pharyngitis (ED) Additional Instructions: Finish the whole course of antibiotic as prescribed. Take steroid course as prescribed. Follow-up with your PCP. Prescriptions: New prednisone 20 mg tablet 20 mg PO BID Qty: 8 0RF No Action ibuprofen 400 mg tablet 400 mg PO Q6H PRN (Reason: pain) Qty: 20 0RF amoxicillin-pot clavulanate 875-125 mg tablet 1 tab PO BID 10 Days Qty: 20 0RF ketorolac 10 mg tablet 10 mg PO Q8H PRN (Reason: pain) Qty: 10 0RF Rx Instructions: Given 1st dose in the ED diphenhydramine HCl [Benadryl] 25 mg capsule 25 mg PO TID PRN (Reason: sleep) Qty: 14 0RF cyclobenzaprine 10 mg tablet 10 mg PO TID PRN (Reason: muscle spasm) Qty: 14 0RF amoxicillin 500 mg capsule 500 mg PO BID 7 Days Qty: 14 0RF flznakeqeo-utlfaofptvpwh-lfam 50-325-40 mg tablet 1 tab PO Q6H PRN (Reason: pain) Qty: 20 0RF ofloxacin 0.3 % drops 10 drp otic (ears) DAILY 7 Days Qty: 5 0RF ondansetron 4 mg tablet,disintegrating 4 mg PO Q8H PRN (Reason: nausea and vomiting) Qty: 20 0RF Probiotic 3 billion cell capsule 3,000 mmu cells PO DAILY Qty: 14 0RF Rx Instructions: administer with a meal amoxicillin-pot clavulanate 875-125 mg tablet 1 tab PO Q12H 10 Days Qty: 20 0RF naproxen 500 mg tablet 500 mg PO BID PRN (Reason: pain) 7 Days Qty: 14 0RF ondansetron 4 mg tablet,disintegrating 4 mg PO Q6H PRN (Reason: nausea and vomiting) Qty: 10 0RF omeprazole 40 mg capsule,delayed release(DR/EC) 40 mg PO DAILY Qty: 30 0RF polyethylene glycol 3350 [Miralax] 17 gram/dose powder 17 g PO DAILY Qty: 510 0RF cephalexin 500 mg capsule 500 mg PO QID 7 Days Qty: 28 0RF bacitracin 500 unit/gram ointment 1 appl topical QID Qty: 14 0RF Referrals: Pelon Brown MD [Primary Care Provider] - Print Language: Romanian
[2024-03-27 13:25] VITALS: BP 113/71; PULSE 95; RESP 16; TEMP 37.4; O2SAT 97; BMI 27.7
[2024-03-27 13:52] LABS: MANUAL DIFF FLAG NO
[2024-03-27 13:57] LABS: Basophils Percent Auto 0.3 % (0-2); Eosinophils Absolute Auto 0.1 X10*3/uL (0.0-0.4); Eosinophils Percent Auto 0.4 % (0-4); Hematocrit 37.7 % (37.0-47.0); Hemoglobin 12.8 g/dl (12.0-16.0); Imm Gran Abs Auto 0.06 X10*3/uL (0.00-0.03); Imm Gran Pct Auto 0.5 % (0.0-0.4); Lymphocytes Absolute Auto 1.6 X10*3/uL (1.2-4.9); Lymphocytes Percent Auto 14.1 % (20-40); Mean Corpuscular Hemoglobin 31.6 pg (27.0-33.0); Mean Corpuscular Volume 93.1 fL (80.0-98.0); Mean Platelet Volume 9.6 fL (9.4-12.3); Monocytes Absolute Auto 0.9 X10*3/uL (0.1-1.2); Monocytes Percent Auto 7.4 % (2-11); Neutrophils Percent Auto 77.3 % (45-73); Platelet Count 378 X10*3/uL (160-400); Red Blood Count 4.05 X10*6/uL (4.20-5.50); Red Cell Distribution Width 12.3 % (11.0-16.0); White Blood Count 11.6 X10*3/uL (4.8-10.8)
[2024-03-27 14:05] LABS: Lactic Acid 0.6 mmol/L (0.5-2.0)
[2024-03-27 14:08] LABS: Alanine Aminotransferase 7 U/L (0-31); Alkaline Phosphatase 73 U/L (39-117); Anion Gap 17 (12-20); Aspartate Amino Transferase 13 U/L (5-31); Bilirubin Total 0.2 mg/dL (0.0-1.0); Blood Urea Nitrogen 8 mg/dL (9-16); Calcium 9.5 mg/dL (8.4-10.2); Carbon Dioxide 24 mmol/L (22-29); Chloride 104 mmol/L (96-108); Creatinine Clr Calc Pharmacy 72.3; Estimated Glomerular Filt Rate > 60; Glucose Random 97 mg/dL (60-115); Magnesium 2.1 mg/dL (1.6-2.6); Potassium 3.5 mmol/L (3.3-5.1); Sodium 141 mmol/L (135-145); Total Protein 7.8 g/dL (6.5-8.0)
[2024-03-27 14:37] LABS: Erythrocyte Sedimentation Rate 47 MM/HR (0-20); HCG Quantitative < 2 mIU/mL
[2024-03-27 16:15] VITALS: BP 129/76; PULSE 98; RESP 18; TEMP 36.9; O2SAT 97
[2024-03-27] MEDS: Ibuprofen 600 MG TABLET PO (16:28)
[2024-03-27] MEDS: 0.9 % Sodium Chloride 1,000 ML 999 ML IV ×2 (16:37→19:19)
[2024-03-27] MEDS: methylPREDNISolone Sod Succ 125 MG/2 ML VIAL IVPUSH (16:37)
[2024-03-27 17:04] LABS: Influenza A PCR NEGATIVE (Negative); Influenza B PCR NEGATIVE (Negative); Resp Syncy Virus RNA Qual PCR NEGATIVE (Negative); SARS COV2 PCR INHOUSE NEGATIVE (Negative)
[2024-03-27 17:14] LABS: IDNOW Serial# 58CA691E; Strep A Nucleic Acid Negative (Negative)
[2024-03-27 18:14] LABS: Monotest Negative (Negative)
[2024-03-27] MEDS: iohexoL 350 MG/ML 100 ML INFUS..BTL IV (18:55)
[2024-03-27 20:00] VITALS: BP 104/72; PULSE 91; RESP 20; TEMP 36.3; O2SAT 97
[2024-03-27 20:49] VITALS: BP 108/72; PULSE 85; RESP 18; TEMP 36.9; O2SAT 97
== END 2024-03-27 20:51 | disposition home or self-care (01) ==
PROVIDERS: Physician Assistant Medical; Emergency Provider Emergency Medicine; PCP Internal Medicine
DX: J02.9 Acute pharyngitis, unspecified (principal)
CPT/HCPCS: 0241U; 36415; 70491; 80053; 83605; 83735; 84702; 85025; 85652; 86308; 87040; 87147; 87205; 87651; 96361; 96374; 99284; J2919; Q9967

== ENCOUNTER 2024-10-31 16:49 | Emergency (ER) | payer SELFPAY ==
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
[2024-10-31 17:28] VITALS: BP 150/82; PULSE 91; O2SAT 97
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
[2024-10-31 18:08] VITALS: BP 107/64; PULSE 83; RESP 18; TEMP 36.7; O2SAT 96; BMI 22.3
[2024-10-31 18:25] VITALS: BP 107/64; PULSE 83; RESP 18; TEMP 36.7; O2SAT 96
[2024-10-31 20:02] VITALS: BP 109/71; PULSE 99; RESP 18; TEMP 37; O2SAT 95
[2024-10-31] MEDS: Acetaminophen 325 MG TABLET 975 MG PO (20:05)
[2024-10-31 20:06] LABS: Glucose, Whole Blood 83 mg/dL (60-115)
--- NOTE | 2024-10-31 20:06 | PC.NURSE ---
pt medicated for 10/10 generalized pain, pt also stated that she felt her BS was low, provider was notified and POC was obtained 83.
[2024-10-31 21:51] VITALS: BP 109/71; PULSE 99; RESP 18; TEMP 37; O2SAT 95
== END 2024-10-31 21:52 | disposition home or self-care (01) ==
PROVIDERS: Emergency Provider Emergency Medicine
DX: S16.1XXA Strain of muscle, fascia and tendon at neck level, initial encounter (principal); S09.90XA Unspecified injury of head, initial encounter; V43.52XA Car driver injured in collision with other type car in traffic accident, initial encounter; Y93.9 Activity, unspecified; Y92.410 Unspecified street and highway as the place of occurrence of the external cause; Y99.9 Unspecified external cause status; R51.9 Headache, unspecified; M54.2 Cervicalgia
CPT/HCPCS: 70450; 72100; 72125; 82947; 99284

== ENCOUNTER 2025-02-24 19:25 | Emergency (ER) | payer OTHER, SELFPAY ==
[2025-02-24 20:12] VITALS: BP 109/74; PULSE 100; RESP 20; TEMP 36.8; O2SAT 98; BMI 26.0
--- NOTE | 2025-02-24 20:20 | ED_ITS ---
HPI - General Adult General Chief complaint: Nausea/Vomiting/Diarrhea Stated complaint: Nausea/Diarrhea/Flu like symptoms Time Seen by Provider: 02/24/25 20:55 Source: patient Mode of arrival: ambulatory Limitations: no limitations History of Present Illness ED Provider: HPI narrative: Patient has been having nausea vomiting diarrhea since yesterday unable to hold any solids or liquids down no fever no chills no recent travel does not remember any bad food intake Related Data Previous Rx's ?Medication ?Instructions ?Recorded ibuprofen 400 mg tablet 400 mg PO Q6H PRN pain #20 tabs 04/16/22 amoxicillin 875 mg-potassium 1 tab PO BID 10 days #20 tabs 05/11/22 clavulanate 125 mg tablet diphenhydramine HCl 25 mg capsule 25 mg PO TID PRN sleep #14 caps 05/11/22 (Benadryl) ketorolac 10 mg tablet 10 mg PO Q8H PRN pain #10 tabs 05/11/22 amoxicillin 500 mg capsule 500 mg PO BID 7 days #14 caps 05/12/22 xstcdqgiqj-fdggriuwmwhax-tjadfpie 1 tab PO Q6H PRN pain #20 tabs 05/12/22 50 mg-325 mg-40 mg tablet cyclobenzaprine 10 mg tablet 10 mg PO TID PRN muscle spasm #14 05/12/22 tabs lactobacillus combination no.4 3 3,000 mmu cells PO DAILY #14 caps 05/12/22 billion cell capsule (Probiotic) ofloxacin 0.3 % ear drops 10 drp otic (ears) DAILY 7 days #5 05/12/22 mL ondansetron 4 mg disintegrating 4 mg PO Q8H PRN nausea and 05/12/22 tablet vomiting #20 tabs ondansetron 4 mg disintegrating 4 mg PO Q6H PRN nausea and 04/06/23 tablet vomiting #10 tabs omeprazole 40 mg capsule,delayed 40 mg PO DAILY #30 caps 04/08/23 release polyethylene glycol 3350 17 17 g PO DAILY #510 grams 04/08/23 gram/dose oral powder (Miralax) bacitracin 500 unit/gram topical 1 appl topical QID #14 grams 10/18/23 ointment cephalexin 500 mg capsule 500 mg PO QID 7 days #28 caps 10/18/23 amoxicillin 875 mg-potassium 1 tab PO Q12H 10 days #20 tabs 03/25/24 clavulanate 125 mg tablet naproxen 500 mg tablet 500 mg PO BID PRN pain 7 days #14 03/25/24 tabs prednisone 20 mg tablet 20 mg PO BID #8 tabs 03/27/24 loperamide 2 mg tablet (Imodium 2 mg PO Q6H PRN loose stool #14 02/24/25 A-D) tabs ondansetron 4 mg disintegrating 4 mg PO Q6-8H PRN nausea and 02/24/25 tablet vomiting #7 tabs Allergies Allergy/AdvReac Type Severity Reaction Status Date / Time No Known Allergies Allergy Verified 02/24/25 20:14 Review of Systems 2 Review of Systems: Yes all other systems are reviewed and are negative [facility] Past Medical History Medical History Migraine Otitis media Sinusitis Social History Social History Alcohol intake: never Patient Tobacco Use Status: Current someday Tobacco user Smoked in Last 30 Days: Yes Use of substances other than those prescribed or required for medical reasons: Yes Substance Use Type: Marijuana Advance Directives: No Advance Directives Information Provided: No Do you have a plan to hurt others: No Plan Physical Exam ED Vital Signs: Vital Signs - 24 hr 02/24/25 20:12 02/24/25 22:23 02/24/25 23:33 Temperature 98.3 F 97.9 F Pulse Rate 100 99 85 Respiratory Rate 20 16 Blood Pressure 109/74 102/77 109/74 Pulse Oximetry 98 98 Oxygen Delivery Method Room Air Room Air 02/24/25 23:34 02/24/25 23:34 02/25/25 00:14 Temperature 97.7 F Pulse Rate 78 86 75 Respiratory Rate 20 Blood Pressure 107/70 104/71 116/77 Pulse Oximetry 100 Oxygen Delivery Method Room Air 02/25/25 01:05 Temperature 97.7 F Pulse Rate 75 Respiratory Rate 20 Blood Pressure 116/77 Pulse Oximetry 100 Oxygen Delivery Method Room Air BMI result Body Mass Index 26.0 Appearance: Alert. Oriented X3. No acute distress. Eyes: PERRLA, No Nystagmus ENT: Pharynx normal. Oral Mucosa moist Neck: Normal inspection. Neck supple. CVS: Normal heart rate and rhythm. Pulses normal. Respiratory: No respiratory distress. Equal air entry bilateral, no wheezing/rales/rhonchi Abdomen: Soft and nontender. Bowel sounds are present, no mass palpable, no CVA tenderness Skin: Skin warm and dry. Normal skin color. Normal skin turgor. Extremities: No lower extremity edema. No calf tenderness Neuro: Oriented X 3. No motor deficit. No sensory deficit.No cerebellar signs , cranial nerves II-XII intact Course Course Course Narrative: RME: 39 yold female being given bromocriptine for possible prolactinoma prestns to the ED for diarrhea, chills, fever, nausea, vomitting, or headache. patient OBGYN sent patient to the ED to have her prolactin levels checked. labs, SARS, ua, and prolactin levels ordered. Medications Administered Discontinued Medications Generic Name Dose Route Start Last Admin Trade Name Freq PRN Reason Stop Dose Admin Acetaminophen/Butalbital/Caffeine 1 tab 02/24/25 22:48 02/24/25 22:52 Butalb/Acetamin/Caff 50/325/40 Tablet PO 02/24/25 22:49 1 tab ONCE ONE Administration Sodium Chloride 1,000 mls @ 999 mls/hr 02/25/25 00:15 02/25/25 00:05 Ns IV 02/25/25 01:15 999 mls/hr .Q1H1M LA NENA Administration Loperamide HCl 2 mg 02/24/25 22:19 02/24/25 22:24 Loperamide Hcl 2 Mg Capsule PO 02/24/25 22:20 2 mg ONCE ONE Administration Ondansetron HCl 4 mg 02/24/25 22:19 02/24/25 22:24 Ondansetron Odt 4 Mg Tab.Stevodis TRANSLINGU 02/24/25 22:20 4 mg ONCE ONE Administration Medical Decision Making Medical Decision Making [facility] Narrative: Patient with multiple complaints now saying that the symptoms of nausea vomiting diarrhea going for a month getting worse for last 3 days asking IV fluids although there was no signs of dehydration orthostatic was normal urine then patient was given IV fluids patient does have anxiety no vomiting or diarrhea noticed in the ER patient is feeling much better discharge patient home on Imodium and Zofran Differential Diagnosis Differential Diagnoses: The differential diagnosis associated with the presentation includes Lab Data MDM Lab Attestation statement: I reviewed the patient's lab results. 02/24/25 20:32 02/24/25 20:32 Labs: Lab Results 02/24/25 02/24/25 Range/Units 20:32 21:05 WBC 11.7 H (4.8-10.8) X10*3/uL RBC 4.14 L (4.20-5.50) X10*6/uL Hgb 13.3 (12.0-16.0) g/dl Hct 38.6 (37.0-47.0) % MCV 93.2 (80.0-98.0) fL MCH 32.1 (27.0-33.0) pg MCHC 34.5 (31.0-35.0) g/dl RDW 12.2 (11.0-16.0) % Plt Count 340 (160-400) X10*3/uL MPV 9.6 (9.4-12.3) fL Immature Gran % (Auto) 0.3 (0.0-0.4) % Neut % (Auto) 69.9 (45-73) % Lymph % (Auto) 20.7 (20-40) % Motley % (Auto) 7.8 (2-11) % Eos % (Auto) 0.9 (0-4) % Baso % (Auto) 0.4 (0-2) % Lymph # (Auto) 2.4 (1.2-4.9) X10*3/uL [place] # (Auto) 0.9 (0.1-1.2) X10*3/uL Eos # (Auto) 0.1 (0.0-0.4) X10*3/uL Baso # (Auto) 0.1 (0.0-0.2) X10*3/uL Abs Immat Gran (auto) 0.03 (0.00-0.03) X10*3/uL Absolute Neuts (auto) 8.2 (2.0-8.3) x10*3/uL Absolute Nucleated RBC 0.000 (0.0-0.012) X10*3/uL Nucleated RBC % (auto) 0.0 (0.0-0.2) /100WBC Sodium 142 (135-145) mmol/L Potassium 4.0 (3.3-5.1) mmol/L Chloride 110 H (96-108) mmol/L Carbon Dioxide 22 (22-29) mmol/L Anion Gap 14 (12-20) BUN 11 (9-16) mg/dL Creatinine 0.71 (0.5-1.4) mg/dL Estim Creat Clear Calc 87.1 Estimated GFR > 60 Random Glucose 79 (60-115) mg/dL Calcium 9.7 (8.4-10.2) mg/dL Total Bilirubin 0.2 (0.0-1.0) mg/dL AST 19 (5-31) U/L ALT 12 (0-31) U/L Alkaline Phosphatase 64 (39-117) U/L Total Protein 7.6 (6.5-8.0) g/dL Albumin 4.2 (3.5-5.0) g/dL Lipase 7 L (8-78) U/L Prolactin Cancelled Beta HCG, Quant < 2 mIU/mL Hold Yellow Top See Note Urine Color Yellow Urine Appearance Cloudy Urine pH 5.5 (5.0-9.0) Ur Specific [place] 1.015 (1.005-1.025) Urine Protein Negative (Neg-Trace) mg/dL Urine Glucose (UA) Negative (Negative) mg/dL Urine Ketones Trace (Negative) mg/dL Urine Blood Small (1+) H (Negative) Urine Nitrite Negative (Negative) Ur Leukocyte Esterase Negative (Negative) Urine RBC 6-10 H (0-2) /HPF Urine WBC 0-5 (0-5) /HPF Ur Squamous Epith Cells 11-20 (0-2) /HPF Urine Bacteria 2+ (None Seen) Hyaline Casts 0-2 (0-2) /LPF Influenza Type A (PCR) NEGATIVE (Negative) Influenza Type B (PCR) NEGATIVE (Negative) RSV RNA Qual (PCR) NEGATIVE (Negative) SARS-CoV-2 RNA (RT-PCR) NEGATIVE (Negative) Discharge Plan Discharge Clinical Impression: Gastroenteritis Patient Disposition: Home, Self-Care Instructions: Gastroenteritis (ED) Additional Instructions: Drink plenty of fluids Medicine for nausea and diarrhea as prescribed Follow up with your PCP Prescriptions: New ondansetron 4 mg tablet,disintegrating 4 mg PO Q6-8H PRN (Reason: nausea and vomiting) Qty: 7 0RF loperamide [Imodium A-D] 2 mg tablet 2 mg PO Q6H PRN (Reason: loose stool) Qty: 14 0RF No Action ibuprofen 400 mg tablet 400 mg PO Q6H PRN (Reason: pain) Qty: 20 0RF amoxicillin-pot clavulanate 875-125 mg tablet 1 tab PO BID 10 Days Qty: 20 0RF ketorolac 10 mg tablet 10 mg PO Q8H PRN (Reason: pain) Qty: 10 0RF Rx Instructions: Given 1st dose in the ED diphenhydramine HCl [Benadryl] 25 mg capsule 25 mg PO TID PRN (Reason: sleep) Qty: 14 0RF cyclobenzaprine 10 mg tablet 10 mg PO TID PRN (Reason: muscle spasm) Qty: 14 0RF amoxicillin 500 mg capsule 500 mg PO BID 7 Days Qty: 14 0RF ojxgbzxkph-cobgnucnahinw-kiby 50-325-40 mg tablet 1 tab PO Q6H PRN (Reason: pain) Qty: 20 0RF ofloxacin 0.3 % drops 10 drp otic (ears) DAILY 7 Days Qty: 5 0RF ondansetron 4 mg tablet,disintegrating 4 mg PO Q8H PRN (Reason: nausea and vomiting) Qty: 20 0RF Probiotic 3 billion cell capsule 3,000 mmu cells PO DAILY Qty: 14 0RF Rx Instructions: administer with a meal amoxicillin-pot clavulanate 875-125 mg tablet 1 tab PO Q12H 10 Days Qty: 20 0RF naproxen 500 mg tablet 500 mg PO BID PRN (Reason: pain) 7 Days Qty: 14 0RF ondansetron 4 mg tablet,disintegrating 4 mg PO Q6H PRN (Reason: nausea and vomiting) Qty: 10 0RF omeprazole 40 mg capsule,delayed release(DR/EC) 40 mg PO DAILY Qty: 30 0RF polyethylene glycol 3350 [Miralax] 17 gram/dose powder 17 g PO DAILY Qty: 510 0RF cephalexin 500 mg capsule 500 mg PO QID 7 Days Qty: 28 0RF bacitracin 500 unit/gram ointment 1 appl topical QID Qty: 14 0RF prednisone 20 mg tablet 20 mg PO BID Qty: 8 0RF Interventions: ED Discharge Assessment Last Done: 02/25/25 01:05 Discharge Date/Time: 02/25/25 01:05 Print Language: English
[2025-02-24 20:38] LABS: MANUAL DIFF FLAG NO
[2025-02-24 20:42] LABS: Basophils Absolute Auto 0.1 X10*3/uL (0.0-0.2); Basophils Percent Auto 0.4 % (0-2); Eosinophils Absolute Auto 0.1 X10*3/uL (0.0-0.4); Eosinophils Percent Auto 0.9 % (0-4); Hematocrit 38.6 % (37.0-47.0); Hemoglobin 13.3 g/dl (12.0-16.0); Imm Gran Abs Auto 0.03 X10*3/uL (0.00-0.03); Imm Gran Pct Auto 0.3 % (0.0-0.4); Lymphocytes Absolute Auto 2.4 X10*3/uL (1.2-4.9); Lymphocytes Percent Auto 20.7 % (20-40); Mean Corpuscular HGB Conc 34.5 g/dl (31.0-35.0); Mean Corpuscular Hemoglobin 32.1 pg (27.0-33.0); Mean Corpuscular Volume 93.2 fL (80.0-98.0); Mean Platelet Volume 9.6 fL (9.4-12.3); Monocytes Absolute Auto 0.9 X10*3/uL (0.1-1.2); Monocytes Percent Auto 7.8 % (2-11); Neutrophils Absolute Auto 8.2 x10*3/uL (2.0-8.3); Neutrophils Percent Auto 69.9 % (45-73); Platelet Count 340 X10*3/uL (160-400); Red Blood Count 4.14 X10*6/uL (4.20-5.50); Red Cell Distribution Width 12.2 % (11.0-16.0); White Blood Count 11.7 X10*3/uL (4.8-10.8)
[2025-02-24 20:59] LABS: Alanine Aminotransferase 12 U/L (0-31); Albumin Level 4.2 g/dL (3.5-5.0); Alkaline Phosphatase 64 U/L (39-117); Anion Gap 14 (12-20); Aspartate Amino Transferase 19 U/L (5-31); Bilirubin Total 0.2 mg/dL (0.0-1.0); Blood Urea Nitrogen 11 mg/dL (9-16); Calcium 9.7 mg/dL (8.4-10.2); Carbon Dioxide 22 mmol/L (22-29); Chloride 110 mmol/L (96-108); Creatinine Clr Calc Pharmacy 87.1; Estimated Glomerular Filt Rate > 60; Glucose Random 79 mg/dL (60-115); Lipase 7 U/L (8-78); Sodium 142 mmol/L (135-145); Total Protein 7.6 g/dL (6.5-8.0)
[2025-02-24 21:04] LABS: HCG Quantitative < 2 mIU/mL
[2025-02-24 21:09] LABS: Appearance Urine Cloudy; Color Urine Yellow; Glucose Urine UA Negative (Negative); Leukocyte Esterase Urine Negative (Negative); Nitrite Urine Negative (Negative); PH 5.5 (5.0-9.0); Specific Gravity - Urine 1.015 (1.005-1.025); UMIC TRIGGER UACC YES; Urine Blood Small (1+) (Negative); Urine Ketones Trace mg/dL (Negative); Urine Protein Negative (Neg-Trace)
[2025-02-24 21:14] LABS: Influenza A PCR NEGATIVE (Negative); Influenza B PCR NEGATIVE (Negative); Resp Syncy Virus RNA Qual PCR NEGATIVE (Negative); SARS COV2 PCR INHOUSE NEGATIVE (Negative)
[2025-02-24 21:15] LABS: Bacteria Urine 2+ (None Seen); Hyaline Casts Urine 0-2 /LPF (0-2); WBC Urine 0-5 /HPF (0-5)
[2025-02-24 22:23] VITALS: BP 102/77; PULSE 99; RESP 16; TEMP 36.6; O2SAT 98
[2025-02-24] MEDS: Ondansetron ODT 4 MG TAB.RAPDIS TRANSLINGU (22:24)
[2025-02-24] MEDS: Loperamide HCl 2 MG CAPSULE PO (22:24)
--- NOTE | 2025-02-24 22:48 | PC.NURSE ---
Pt asking for pain medication, provider made aware, awaiting orders.
[2025-02-24] MEDS: Butalb/Acetamin/Caff 50/325/40 TABLET 1 TAB PO (22:52)
--- NOTE | 2025-02-24 23:30 | PC.NURSE ---
Took over care from RUDI Cheek, provider into assess pt, pt complaining of weakness, provider ordering ortho's., ortho's completed, reported to provider.
[2025-02-24 23:33] VITALS: BP 109/74; PULSE 85
[2025-02-24 23:34] VITALS: BP 104/71; BP 107/70; PULSE 78; PULSE 86
--- NOTE | 2025-02-24 23:54 | PC.NURSE ---
pt given po change per provider.
[2025-02-25] MEDS: 0.9 % Sodium Chloride 1,000 ML 999 ML IV (00:05)
[2025-02-25 00:14] VITALS: BP 116/77; PULSE 75; RESP 20; TEMP 36.5; O2SAT 100
[2025-02-25 01:05] VITALS: BP 116/77; PULSE 75; RESP 20; TEMP 36.5; O2SAT 100
== END 2025-02-25 01:05 | disposition home or self-care (01) ==
PROVIDERS: Emergency Provider Internal Medicine
DX: K52.9 Noninfective gastroenteritis and colitis, unspecified (principal)
CPT/HCPCS: 0241U; 36415; 80053; 81001; 83690; 84146; 84702; 85025; 99283; 99285

== ENCOUNTER 2025-09-14 19:22 | Emergency (ER) | payer OTHER, SELFPAY ==
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
--- OUTSIDE RECORDS SUMMARY | 2025-03-03 09:45 | XMS_ITS ---
Author Organization [facility] Address [address] [place] [address] Care Team Providers Care Atomic Physics Professor Name Role Phone PALMA KERN Unavailable [phone] REASON FOR VISIT prolactin recheck Social History Sex Assigned At : Social History Observation Description Sex Assigned At Female Encounters Encounter Location Date Provider Diagnosis [facility] [address] [place] [phone] 03/03/2025 PALMA KERN Plan Of Treatment No Information Progress Notes * Rasheeda PRAKASHB:1984 (40 yo F)Acc No.[id number]:03/03/2025 Progress Notes Patient: Navid diaz Morenita Provider: Farideh Kern NP :1985 A ge:39 Y S ex:Female Date:03/03/2025 Address:[address] [place] [address] PR[place]OT [id number] Subjective: * Chief Complaints: * P rolactin recheck Billing Information: * Procedure Codes: * Electronic signature of PATRICE KERN NP on 09/14/2025 at 08:03 PM EST Sign off status: Pending * Provider: Farideh Kern NP Date: 03/03/2025 Generated for Josuéi ng/Kristi/eTransmitting on: 11/14/2024 08:03 PM EST
--- OUTSIDE RECORDS SUMMARY | 2025-04-20 10:45 | XMS_ITS ---
Author Organization [facility] Address [address] [place] [address] Care Team Providers Care Electrolysis Engineer Name Role Phone PALMA KERN Unavailable [phone] REASON FOR VISIT libido Social History Sex Assigned At : Social History Observation Description Sex Assigned At Female Encounters Encounter Location Date Provider Diagnosis [facility] [address] [place] [phone] 04/20/2025 PALMA KERN Plan Of Treatment No Information Progress Notes * Rasheeda PRAKASHB:1984 (40 yo F)Acc No.[id number]:04/20/2025 Progress Notes Patient: Navid diaz Morenita Provider: Farideh Kern NP :1985 A ge:39 Y S ex:Female Date:04/20/2025 Address:[address] [place] [address] PRABHJOT [id number] Subjective: * Chief Complaints: * L ibido Billing Information: * Procedure Codes: * Electronic signature of PATRICE KERN NP on 09/14/2025 at 08:04 PM EST Sign off status: Pending * Provider: Farideh Kern NP Date: 0 04/20/2025 Generated for Printi ng/Fanikkig/eTransmitting on: 11/14/2024 08:04 PM EST
--- OUTSIDE RECORDS SUMMARY | 2025-05-18 11:30 | XMS_ITS ---
Author Organization [facility] Address [address] [place] [address] Care Team Providers Care Pulpwood Buyer Name Role Phone PALMA KERN Unavailable [phone] REASON FOR VISIT libido Social History Sex Assigned At : Social History Observation Description Sex Assigned At Female Encounters Encounter Location Date Provider Diagnosis [facility] [address] [place] [phone] 05/18/2025 PALMA KERN Plan Of Treatment No Information Progress Notes * Rasheeda PRAKASHB:1984 (40 yo F)Acc No.[id number]:05/18/2025 Progress Notes Patient: Navid diaz Morenita Provider: Farideh Kern NP :1985 A ge:39 Y S ex:Female Date:05/18/2025 Address:[address] [place] [address] PRABHJOT [id number] Subjective: * Chief Complaints: * L ibido Billing Information: * Procedure Codes: * Electronic signature of PATRICE KERN NP on 09/14/2025 at 08:04 PM EST Sign off status: Pending * Provider: Farideh Kern NP Date: 0 05/18/2025 Generated for Printi ng/Fanikkig/eTransmitting on: 11/14/2024 08:04 PM EST
--- OUTSIDE RECORDS SUMMARY | 2025-06-22 06:30 | XMS_ITS ---
Author Organization [facility] Address [address] [facility] [place] [address] Care Team Providers Care Pricing Manager Name Role Phone PALMA KERN Unavailable [phone] REASON FOR VISIT Follow-up Medications Medication SIG (Take, Route, Frequency, Duration) Notes Start Date End Date Status SEROquel Active Ambien Active clonazePAM Active Social History Sex Assigned At : Social History Observation Description Sex Assigned At Female Encounters Encounter Location Date Provider Diagnosis [facility] [address] [place] [phone] 06/22/2025 PALMA KERN Plan Of Treatment No Information Progress Notes * Rasheeda PRAKASHB:1984 (40 yo F)Acc No.[id number]:06/22/2025 Patient: Lasha Hayessa Provider: Farideh Kern NP :1985 A ge:39 Y S ex:Female Date:06/22/2025 Address:[address] [place] [address] [place], [id number] Subjective: * Chief Complaints: * F ollow-up * Medications: T akingSEROquel Ambien clonazePAM Taking SEROquel Taking Ambien Taking clonazePAM * Electronic signature of PATRICE KERN NP on 09/14/2025 at 08:03 PM EST Sign off status: Pending * Provider: Farideh Kern NP Date: 0 06/22/2025 Generated for Printi ng/Faxing/eTransmitting on: 1 11/14/2024 08:03 PM EST
[2025-09-14 19:44] VITALS: BP 116/75; PULSE 96; RESP 16; TEMP 36.6; O2SAT 97; BMI 32.5
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
[2025-09-14 20:02] VITALS: BP 116/75; PULSE 96; RESP 16; TEMP 36.6; O2SAT 97
--- OUTSIDE RECORDS SUMMARY | 2025-09-14 20:04 | XMS_ITS ---
[facility] Organization [facility] Care Team Organization Name Specialty Phone Email Start Date End Da te [facility] DIANA DELEON Primary Care 09/19/2022 06/30/20 24
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
--- OUTSIDE RECORDS SUMMARY | 2025-09-14 20:04 | XMS_ITS | Clinical Summary ---
Author Organization [address] [place] [address] Address [address] [place] [address] Phone Care Team Providers Care Firesetter Name Role Phone Pelon Brown MD Primary Care Provider [phone] Allergies No known active allergies Medications arm brace (Wrist Brace) misc 1 Device by Does not apply route as needed (place device on the left hand as needed for pain). 9 Active amoxicillin (AMOXIL) 250 mg capsule Take 250 mg by mouth 3 times daily. Active clonazePAM (KlonoPIN) 1 mg tablet Take 1 mg by mouth daily. Active cyclobenzaprine (FLEXERIL) 5 mg tablet Take 5 mg by mouth 3 times daily as needed. Active risperiDONE (RisperDAL) 1 mg tablet Take 1 Tablet by mouth 2 times daily. Active zolpidem (AMBIEN) 10 mg tablet Take by mouth at bedtime as needed. Active acetaminophen (TYLENOL) 500 mg tablet Take 1 Tablet by mouth every 6 hours as needed for Pain. 4 Active Belsomra 15 mg tablet Take 1 tablet by mouth at bedtime. Max Daily Amount: 1 tablet 4 Active fluticasone propionate (FLONASE) 50 mcg/actuation nasal sprayIndications :Nasal congestion SPRAY 2 SPRAYS INTO EACH NOSTRIL EVERY DAY SHAKE GENTLY. CLEAN TIP AND REPLACE CAP AFTER USE. 16 mL 5 5 Active cholecalciferol (VITAMIN D-3) 250 mcg (10,000 unit) capsuleIndicatio ns:Vitamin D deficiency Take 1 capsule (10,000 Units total) by mouth 1 (one) time each day. 90 each 3 5 01/09/20 26 Active ondansetron (ZOFRAN) 4 mg tablet Take 1 tablet (4 mg total) by mouth every 8 (eight) hours if needed for nausea or vomiting. Active loperamide (IMODIUM A-D) 2 mg tablet Take 1 tablet (2 mg total) by mouth 4 (four) times a day if needed for diarrhea. Active amitriptyline (ELAVIL) 25 mg tabletIndication s:Other migraine with status migrainosus, intractable Take 1 tablet (25 mg total) by mouth at bedtime as needed (migraines). 30 each 11 5 03/27/20 26 Active ibuprofen (ADVIL,MOTRIN) 800 mg tabletIndication s:Sore throat Take 1 tablet (800 mg total) by mouth 3 (three) times a day if needed for mild pain (pain). Take with food. 90 tablet 3 5 07/03/20 26 Active phenoL-glycerin (Chloraseptic Max Sore Throat) 1.5-33 % spray,non-aeroso lIndications:Acu te recurrent sinusitis, unspecified location Place 1 spray into mouth between cheek and gum 2 (two) times a day if needed (throat pain). 118 mL 1 5 Active oxymetazoline (Afrin, oxymetazoline,) 0.05 % nasal sprayIndications :Nasal congestion Administer 2 sprays into each nostril 2 (two) times a day for 3 days. 15 mL 5 Active famotidine (Pepcid) 20 mg tablet Take 1 tablet (20 mg total) by mouth 2 (two) times a day. 60 each 11 5 08/03/20 26 Active QUEtiapine (SEROquel) 200 mg tablet Take 1 tablet (200 mg total) by mouth at bedtime. 5 Active sertraline (ZOLOFT) 50 mg tablet Take 1 tablet (50 mg total) by mouth 1 (one) time each day. 5 Active meloxicam (MOBIC) 7.5 mg tablet Take 1 tablet (7.5 mg total) by mouth 1 (one) time each day. 30 tablet 1 5 Active SUMAtriptan (IMITREX) 50 mg tablet Take 1 tablet (50 mg total) by mouth 1 (one) time if needed for migraine. May repeat dose once in 2 hours if no relief. Do not exceed 2 doses in 24 hours. 9 tablet 1 5 02/03/20 26 Active montelukast (SINGULAIR) 10 mg tablet Take 1 tablet (10 mg total) by mouth at bedtime. 30 each 5 5 02/03/20 26 Active Active Problems Problem Noted Date Diagnosed Date Amenorrhea 11/27/2024 Depression 11/27/2024 Carpal tunnel syndrome 03/21/2019 Vitamin D deficiency 01/31/2019 Anxiety 02/28/2018 Encounters Date Type Department Care Team Description 08/21/2025 Telephone Internal Medicine [address] [phone] Pelon Brown MD 08/18/2025 Telephone Internal Medicine [address] [phone] Pelon Brown MD 08/06/2025 3:00 PM EDT Office Visit Internal [address] [phone] Pelon Brown MD Acute recurrent sinusitis, unspecified location (Primary Dx); Chronic migraine with aura without status migrainosus, not intractable 08/03/2025 Telephone Internal [address] [phone] Pelon Brown MD 07/03/2025 11:00 AM EDT Office Visit Internal [address] [phone] Tevin Lucio NP Acute recurrent sinusitis, unspecified location (Primary Dx); Tonsillitis; Sore throat; Nasal congestion 07/03/2025 Telephone Internal Medicine [address] [phone] Pelon Brown MD 06/23/2025 Telephone Internal Medicine [address] [phone] Pelon Brown MD from Last 3 Months Immunizations Immunization Administration Dates Next Due Tdap Tetanus diptheria acell ular pertussis (Boostrix; Adacel) 7yo and older 10/18/2023,06/03/2019 Surgical History Surgery Date Site/Laterality Comments OTHER SURGICAL HISTORY PROCEDURE: DENIES PREVIOUS SURGERY TUBAL LIGATION PROCEDURE: HISTORICAL TUBAL LIGATION Medical History Medical History Date Comments Anxiety 02/28/2018 DX:Anxiety Depressive disorder DX:Depressiv e disorder Social History Tobacco Use Types Packs/Day Years Used Date Smoking Tobacco: Former Cigarettes Q uit: 03/12/2023 Smokeless Tobacco: Never Alcohol Use Standard Drinks/Week Comments Yes 0 (1 standard drink = 0.6 oz pur e alcohol) Comments Unknown Sex and Gender Information Value Date Recorded Sex Assigned at Not on file Legal Sex Female 4:57 AM EST Gender Identity Not on file Sexual Orientation Not on file Obstetrics History Para Term AB IAB SAB Ectopic Multiple Livin g Live Births 2 2 2 Date Outcome GA Total Labor Labor/2nd/3rd Weight Sex Type Anes PTL Brielle A1 A5 Name Clin Term Term Last Filed Vital Signs Vital Sign Reading Time Taken Comments Blood Pressure 116/80 08/06/2025 3:33 PM EDT Pulse 115 08/06/2025 3:33 PM EDT Temperature 37.3 C (99.2 F) 08/06/2025 3:33 PM EDT Respiratory Rate 16 03/25/2025 9:02 AM EDT Oxygen Saturation 98% 08/06/2025 3:33 PM EDT Inhaled Oxygen Concentration - - Weight 60.6 kg (133 lb 9.6 oz) 08/06/2025 3:33 P M EDT Height 139.7 cm (4' 7 ) 08/06/2025 3:33 PM EDT Body Mass Index 31.05 08/06/2025 3:33 PM EDT Plan of Treatment Upcoming Encounters Date Type Department Care Team (Late st Contact Info) Description 12/07/2025 2:00 PM EST Consult [facility] [address] [facility] [address] [place] [phone] Israel Barnett MD [address] [place] [address] Health Maintenance Due Date Last Done Comments Hepatitis B Vaccines (1 of 3 - 19+ 3-dose series) 2005 HPV Vaccines (1 - 3-dose SCD M series) 2013 Social Influencers of Health Screening 10/15/2022 Depression Screening 11/12/2024 COVID-19 Vaccine (4 - 2024-2 6 season) 2025 05/31/2022, 09/12/2021, 08/22/2021 Influenza Vaccine (#1) 2025 Cervical Cancer Screening: HPV 06/18/2028 06/18/2023 Cholesterol Screening (Lipid Panel) 01/06/2030 01/06/2025, 01/29/2019 DTaP,Tdap,and Td Vaccines (3 - Td or Tdap) 10/18/2033 10/18/2023, 06/03/2019 RSV Immunization Adult Patients (1 - 1-dose 75+ series) 2061 HIV Screening Completed 04/17/2024 Hepatitis C Screening Completed 04/17/2024 HIB Vaccines Aged Out No longer eligi ble based on patient's age to complete this topic Hepatitis A Vaccines Aged Out No long er eligible based on patient's age to complete this topic IPV Vaccines Aged Out No longer eligi ble based on patient's age to complete this topic MMR Vaccines Aged Out No longer eligi ble based on patient's age to complete this topic Meningococcal ACWY Vaccine Aged Out N o longer eligible based on patient's age to complete this topic Meningococcal B Vaccine Aged Out No l onger eligible based on patient's age to complete this topic Pneumococcal Vaccine: Pediatrics (0 to 5 Years) and At-Risk Patients (6 to 49 Years) Aged Out No longer eligible b ased on patient's age to complete this topic RSV Immunization Patients Under 20 months Aged Out No longer eligible b ased on patient's age to complete this topic Varicella Vaccines Aged Out No longer eligible based on patient's age to complete this topic Procedures Procedure Name Priority Date/Time Associated Diagnosis Comments POC RAPID STREP A Routine 07/03/2025 11: 40 AM EDT Sore throat LIPID PANEL WITH REFLEX TO DIRECT LDL Routine 01/06/2025 10:20 AM EST Other migraine with status migrainosus, intractable HEPATITIS C SCREENING Routine 04/17/2024 HPV Routine 06/18/2023 from Last 3 Months or Most Recently Relevant to Health Maintenance Results * POC rapid strep A manually resulted (07/03/2025 11:40 AM EDT) Rapid Strep A Screen POC Negative Negative Internal Control Pass Yes Yes Swab Structure of anterior region of neck / Unknown 07/03/2025 11:40 AM EDT Tevin Lucio NP POINT OF CARE TEST ENTER/EDIT OR DERABLES Final Result * Lipid panel with reflex to direct LDL (01/06/2025 10:20 AM EST) Cholesterol 157 0 - 200 mg/dL LAB CHEMISTRY METHOD 01/06/2025 3:27 PM [facility] Triglycerides 85 0 - 150 mg/dL LAB CHEMISTRY METHOD 01/06/2025 3:27 PM [facility] HDL 47 >=40 mg/dL LAB CHEMISTRY METHOD 01/06/2025 3:27 PM [facility] LDL Calculated 93 0 - 100 mg/dL LAB CHEMISTRY METHOD 01/06/2025 3:27 PM [facility] VLDL Cholesterol Max 17 mg/dL LAB CHEMISTRY METHOD 01/06/2025 3:27 PM [facility] Non HDL Chol. (LDL+VLDL) 110 <145 mg/dL LAB CHEMISTRY METHOD 01/06/2025 3:27 PM [facility] Chol/HDL Ratio 3.3 0.0 - 4.4 LAB CHEMISTRY METHOD 01/06/2025 3:27 PM [facility] Blood Venous blood specimen / Unknown Venipuncture / Unknown 01/06/2025 10:20 AM EST 01/06/2025 10:20 AM EST Tevin Lucio PATENT PROSECUTION ATTORNEY LAB BLOOD ORDERABLES Final Resul t TRAN [facility] [address] [place] [address], [place] [phone] * Hepatitis C Screening (04/17/2024) Hepatitis C Screening abstracted Historical Provider HEALTH MAINTENANCE Final Result * Cervical Cancer Screening: HPV (06/18/2023) Cervical Cancer Screening: HPV abstracted, negative Historical Provider HEALTH MAINTENANCE Final Result from Last 3 Months or Most Recently Relevant to Health Maintenance Insurance [facility] Care Teams Firesetter Relationship Specialty Start Date End Date Pelon Brown MD [address] [facility] [address] [place] [address] PCP - General Internal Medicine 09/24/18
--- OUTSIDE RECORDS SUMMARY | 2025-09-14 20:04 | XMS_ITS | Encounter Summary ---
Author Organization [facility] Address [address] [place] [address] Care Team Providers Care Medical Imaging Director Name Role Phone Pelon Brown MD Primary Care Provider [phone] Encounter Details Date Type Department Care Team (Late st Contact Info) Description 08/21/2025 Telephone Internal Medicine - [address] [place] [address] Pelon Brown MD [address] [place] [phone] Social History Tobacco Use Types Packs/Day Years [...] on file Sexual Orientation Not on file documented as of this encounter Functional Status * Are you deaf or do you have serious difficulty hearing? Answer Date of Assessment Author No 02/26/2025 3:39 PM ADARSHT Carol Cormier, RUDI * Are you blind or do you have serious difficulty seeing, even when wearing glasses? Answer Date of Assessment Author No 02/26/2025 3:39 PM ADARSHT Carol Cormier, RN * Do you have serious difficulty walking or climbing stairs? Answer Date of Assessment Author No 02/26/2025 3:39 PM ADARSHT Carol Cormier, RN * Do you have serious difficulty dressing or bathing? Answer Date of Assessment Author No 02/26/2025 3:39 PM EDCarol Randolph RN * Because of a physical, mental, or emotional condition, do you have serious difficulty doing errandsalone such as visiting the doctor? Answer Date of Assessment Author No 02/26/2025 3:39 PM Carol Garcia RN documented as of this encounter Mental Status * Because of a physical, mental, or emotional condition, do you have serious difficulty concentrating, remembering, or making decisions? (5 years old or older) Answer Entry Date Author No 02/26/2025 3:39 PM Carol Garcia RN documented in this encounter Plan of Treatment Upcoming Encounters Date Type Department Care Team (Late st Contact Info) Description 12/07/2025 2:00 PM EST Consult [facility] [address] [facility] [address] [place] [address] Israel Barnett MD [address] [place] [address] documented as of this encounter Visit Diagnoses Not on filedocumented in this encounter Care Teams Medical Imaging Director Relationship Specialty Start Date End Date Pelon Brown MD 175 [facility] [address] [place] [address] PCP - General Internal Medicine 09/24/18 documented as of this encounter
== END 2025-09-14 20:03 | disposition home or self-care (01) ==
LOC: HO.ED 20:01
PROVIDERS: Emergency Provider Emergency Medicine; PCP Internal Medicine
DX: S16.1XXA Strain of muscle, fascia and tendon at neck level, initial encounter (principal); X58.XXXA Exposure to other specified factors, initial encounter; Y93.9 Activity, unspecified; Y92.9 Unspecified place or not applicable; M54.9 Dorsalgia, unspecified
CPT/HCPCS: 99282; 99283